=== PATIENT | male | born 1970 | race Hispanic/Latino ===

== ENCOUNTER 2018-10-19 05:44 | Emergency (ER) | payer MEDICAID ==
--- NOTE | 2018-10-19 09:06 | XRay Report ---
PROCEDURE: XR KNEE 3V RT TECHNIQUE: 4 views of the right knee. HISTORY: rt knee pain COMPARISON: None FINDINGS: There is no acute fracture seen. There is no dislocation seen. There is no evidence for joint effusion. There is no focal osseous lesion identified. IMPRESSION: There is no acute abnormality identified. This document is electronically signed by Adelaide Higgins MD., October 19 2018 09:04:09 AM ET
--- NOTE | 2018-10-19 09:08 | XRay Report ---
PROCEDURE: XR SPINE LUMBOSACRAL 2-3V TECHNIQUE: 3 views of the lumbar spine HISTORY: back pain COMPARISON: None FINDINGS: Vertebral heights and alignment are maintained. There is minimal multilevel vertebral endplate spurring. There is minimal disc space narrowing at L3- 4 and L5-S1. There is no fracture seen. SI joints are unremarkable. IMPRESSION: Minimal degenerative disc disease at L3-4 and L5-S1. This document is electronically signed by Adelaide Higgins MD., October 19 2018 09:06:45 AM ET
[2018-10-19] MEDS ORDERED: DELTASONE PO ONE (09:25)
[2018-10-19] MEDS ORDERED: TORADOL IM ONE (09:25)
--- NOTE | 2018-10-19 09:30 | Emergency Department Report ---
ED Back Pain/Injury HPI - General Chief Complaint: Extremity Injury, Lower Stated Complaint: BACK/RT KNEE PAIN Time Seen by Provider: 10/19/18 08:05 Source: patient, EMS Limitations: No Limitations - History of Present Illness Initial Comments: This is a 47-year-old male nontoxic, well nourished in appearance, no acute signs of distress presents to the ED with c/o of acute on chronic lower back pain and right knee pain. Patient stated that the past 2 days he has been walking a lot. Patient denies any injuries.. Patient denies any radiation of pain. Patient denies any trauma. Denies any bladder or bowel instability. Patient denies any urinary symptoms. Denies any fever, chills, nausea, vomiting, headache, stiff neck, chest pain or shortness of breath. Patient den ies any numbness or tingling. Denies any allergies. Denies significant past medical history. MD Complaint: back pain -: days(s) (2) Similar Symptoms Previously: Yes Place: street Radiation: none Severity: mild Severity scale (0 -10): 8 Quality: aching Consistency: intermittent Improves With: immobilization, sitting upright Worsens With: movement, walking Associated Symptoms: denies other symptoms. denies: confusion, weakness, chest pain, numbness, difficulty walking, cough, difficulty urinating, diaphoresis, incontinence, fever/chills, constipation, headaches, abdominal pain, loss of appetite, malaise, nausea/vomiting, rash, seizure, shortness of breath, syncope - Related Data Previous Rx's Medication Instructions Recorded Last Taken Type Cyclobenzaprine [Flexeril] 10 mg PO QHS PRN #10 tablet 10/19/18 Unknown Rx Ibuprofen [Motrin] 600 mg PO Q8H PRN #20 tablet 10/19/18 Unknown Rx Allergies Allergy/AdvReac Type Severity Reaction Status Date / Time No Known Allergies Allergy Unverified 10/19/18 05:57 ED Review of Systems ROS: Stated complaint: BACK/RT KNEE PAIN Other details as noted in HPI Constitutional: denies: chills, fever Eyes: denies: eye pain, eye discharge, vision change ENT: denies: ear pain, throat pain Respiratory: denies: cough, shortness of breath, wheezing Cardiovascular: denies: chest pain, palpitations Endocrine: no symptoms reported Gastrointestinal: denies: abdominal pain, nausea, diarrhea Genitourinary: denies: urgency, dysuria Musculoskeletal: back pain, arthralgia. denies: joint swelling Skin: denies: rash, lesions Neurological: denies: headache, weakness, paresthesias Psychiatric: denies: anxiety, depression Hematological/Lymphatic: denies: easy bleeding, easy bruising ED Past Medical Hx - Past Medical History Previous Medical History?: Yes Hx Psychiatric Treatment: Yes (Schizoprenia, Paranoia) Additional medical history: Right hip replacement - Surgical History Past Surgical History?: Yes Additional Surgical History: Right Hip Replacement - Social History Smoking Status: Current Some Day Smoker - Medications Home Medications: Home Medications Medication Instructions Recorded Confirmed Last Taken Type Cyclobenzaprine [Flexeril] 10 mg PO QHS PRN #10 tablet 10/19/18 Unknown Rx Ibuprofen [Motrin] 600 mg PO Q8H PRN #20 tablet 10/19/18 Unknown Rx ED Physical Exam - General Limitations: No Limitations General appearance: alert, in no apparent distress - Head Head exam: Present: atraumatic, normocephalic - Eye Eye exam: Present: normal appearance - Extremities Exam Extremities exam: Present: normal inspection, full ROM, normal capillary refill. Absent: tenderness, joint swelling, calf tenderness - Expanded Lower Extremity Exam Right Hip exam: Present: normal inspection, full ROM. Absent: tenderness, swelling Upper Leg exam: Present: normal inspection, full ROM. Absent: tenderness, swelling Knee exam: Present: normal inspection, full ROM, full knee extension. Absent: tenderness, swelling, abrasion, laceration, ecchymosis, deformity, crepidus, dislocation, erythema, effusion, pain w/ pronation/supination, posterior draw sign, pain/laxity with valgus, pain/laxity with varus Lower Leg exam: Present: normal inspection, full ROM. Absent: tenderness, swe lling Ankle exam: Present: normal inspection, full ROM. Absent: tenderness, swelling Foot/Toe exam: Present: normal inspection, full ROM. Absent: tenderness, swelling Neuro vascular tendon exam: Present: no vascular compromise Gait: Positive: observed and normal - Back Exam Back exam: Present: normal inspection, full ROM, paraspinal tenderness (lumbar paraspinal). Absent: tenderness, CVA tenderness (R), CVA tenderness (L), muscle spasm, vertebral tenderness, rash noted - Expanded Back Exam Expanded Back exam: Absent: saddle anesthesia Back exam: Negative Straight Leg Raising: Left, Right - Neurological Exam Neurological exam: Present: alert, oriented X3 - Psychiatric Psychiatric exam: Present: normal affect, normal mood - Skin Skin exam: Present: warm, dry, intact, normal color. Absent: rash ED Course Vital Signs 10/19/18 06:04 Temperature 98.9 F Pulse Rate 80 Respiratory 18 Rate Blood Pressure 128/88 O2 Sat by Pulse 100 Oximetry - Reevaluation(s) Reevaluation #1: 10/19/18 09:30 Patient is speaking in full sentences with no signs of distress noted. ED Medical Decision Making - Medical Decision Making This is a 47-year-old male that presents with low back strain and right knee strain. Patient is stable was examined by me. There is no spinal tenderness. There is no cauda equina syndrome during examination. No bladder or bowel instability. Patient received Toradol 60 mg IM and prednisonme in the ED which preceded his symptoms has resolved and subsided. Patient is discharged with muscle relaxant and Motrin. Patient was instructed not to operate any machinery while taking muscle relaxant as they cause her drowsiness. Patient was referred to Follow-up with a primary care doctor in 3-5 days or if symptoms worsen and continue return to emergency room as soon as possible. At time of discharge, the patient does not seem toxic or ill in appearance. No acute signs of distress noted. Patient agrees to discharge treatment plan of care. No further questions noted by the patient. This chart is dictated with using [employer] Critical care attestation.: If time is entered above; I have spent that time in minutes in the direct care of this critically ill patient, excluding procedure time. ED Disposition Clinical Impression: Low back strain Qualifiers: Encounter type: initial encounter Qualified Code(s): S39.012A - Strain of muscle, fascia and tendon of lower back, initial encounter Strain of right knee Qualifiers: Encounter type: initial encounter Qualified Code(s): S86.911A - Strain of unspecified muscle(s) and tendon(s) at lower leg level, right leg, initial encounter Disposition: TO HOME OR SELFCARE Is pt being admited?: No Does the pt Need Aspirin: No Condition: Stable Instructions: Low Back Strain (ED), Knee Pain (ED), RICE Therapy (ED) Additional Instructions: Follow-up with your primary care doctor in 3-5 days or if symptoms worsen such as bladder or bowel stability, chest pain, short of breath, numbness or tingling sensation in extremities, headache, dizziness, visual changes, nausea vomiting, or abdominal pain, return back to emergency room as was possible. Take ibuprofen and Flexeril as prescribed. Do not operate heavy machinery while taking Flexeril due to sedation Prescriptions: Cyclobenzaprine [Flexeril] 10 mg PO QHS PRN #10 tablet PRN Reason: Muscle Spasm Ibuprofen [Motrin] 600 mg PO Q8H PRN #20 tablet PRN Reason: Pain Referrals: [facility] MD ANNE [Primary Care Provider] - 3-5 Days PRIMARY MD MAKSIM [Referring] - 3-5 Days YOUNG BEASLEY MD [Staff Physician] - 3-5 Days [facility] [Outside] - 3-5 Days [facility] [Outside] - 3-5 Days
[2018-10-19 10:10] VITALS: BP 134/80
== END 2018-10-19 10:10 | disposition home or self-care (01) ==
LOC: ED 05:44
DX: S39.012A Strain of muscle, fascia and tendon of lower back, initial encounter (principal); S86.911A Strain of unspecified muscle(s) and tendon(s) at lower leg level, right leg, initial encounter; F20.9 Schizophrenia, unspecified; F17.200 Nicotine dependence, unspecified, uncomplicated; Z96.641 Presence of right artificial hip joint; Z79.899 Other long term (current) drug therapy; X58.XXXA Exposure to other specified factors, initial encounter; Y93.01 Activity, walking, marching and hiking; Y92.488 Other paved roadways as the place of occurrence of the external cause; Y99.8 Other external cause status
CPT/HCPCS: 72100; 73562; 96372; 99284; J1885; J7512

== ENCOUNTER 2018-12-23 16:01 | Emergency (ER) | payer MEDICAID ==
[2018-12-23 17:26] LABS: Hematocrit 46.3 % (35.5-45.6); Hemoglobin 15.6 gm/dl (11.8-15.2); Mean Corpuscular HGB Conc 34 % (32-34); Mean Corpuscular Volume 98 fl (84-94); Platelet Count 342 K/mm3 (140-440); Red Blood Count 4.74 M/mm3 (3.65-5.03); Red Cell Distribution Width 14.2 % (13.2-15.2)
[2018-12-23 17:44] LABS: BUN/Creatinine Ratio 27; Blood Urea Nitrogen 27 mg/dL (9-20); Calcium 10.1 mg/dL (8.4-10.2); Hemolysis Index 21
[2018-12-23 18:02] LABS: Total Cells Counted 100
[2018-12-23 18:03] LABS: RBC Morphology Normal
--- NOTE | 2018-12-23 19:43 | Cat Scan Report ---
CT head/brain wo con INDICATION: confusion. TECHNIQUE: Routine CT head without contrast. Sagittal and coronal reformatted images were obtained. A ll CT scans at this location are performed using CT dose reduction for ALARA by means of automated ex posure control. COMPARISON: None. FINDINGS: BRAIN / INTRACRANIAL CONTENTS: No acute hemorrhage, mass effect, midline shift, hydrocephalus, or acu te, large territorial infarct. Considering the age, generalized cortical involution is seen. Normal t emporal horn tips suggest well preserved medial temporal lobes. Periventricular and deep hemispheric white matter are normal. No significant white matter abnormality. CRANIOCERVICAL JUNCTION: No significant abnormality. ORBITS: No significant abnormality of visualized orbits. SINUSES / MASTOIDS: No significant abnormality of the visualized paranasal sinuses or mastoid air thao ls. ADDITIONAL FINDINGS: None. IMPRESSION: I do not see an acute parenchymal lesion in the brain Cortical involution Signer Name: Chucky Yadav MD Signed: 12/23/2018 7:39 PM Workstation Name: [id number]
[2018-12-23] MEDS ORDERED: ATIVAN IM PRN (20:54)
[2018-12-23] MEDS ORDERED: HALDOL IM PRN (20:54)
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
[2018-12-23 21:29] LABS: Bilirubin,Urine NEG (Negative); Blood,Urine NEG (Negative); Color,Urine Amber (Yellow); Hyaline Casts,Urine 3 /LPF; Mucus,Urine 2+ /HPF
[2018-12-23 21:35] LABS: Amphetamine Screen,Urine PRESUMPTIVE NEGATIVE; Benzodiazepines Screen,Urine PRESUMPTIVE NEGATIVE; Cannabinoid Screen,Urine PRESUMPTIVE NEGATIVE; Cocaine Screen,Urine PRESUMPTIVE NEGATIVE; Methadone Screen,Urine PRESUMPTIVE NEGATIVE; Opiate Screen,Urine PRESUMPTIVE NEGATIVE
[2018-12-23 22:44] VITALS: BP 109/59
== END 2018-12-23 22:44 | disposition short-term general hospital (02) ==
LOC: ED 16:01
DX: S70.12XA Contusion of left thigh, initial encounter (principal); S40.021A Contusion of right upper arm, initial encounter; S09.90XA Unspecified injury of head, initial encounter; H50.89 Other specified strabismus; F17.200 Nicotine dependence, unspecified, uncomplicated; F20.9 Schizophrenia, unspecified; Z98.890 Other specified postprocedural states; Z96.641 Presence of right artificial hip joint; Z79.899 Other long term (current) drug therapy; V09.9XXA Pedestrian injured in unspecified transport accident, initial encounter; Y93.89 Activity, other specified; Y92.488 Other paved roadways as the place of occurrence of the external cause; Y99.8 Other external cause status
CPT/HCPCS: 36415; 70450; 80048; 80307; 81001; 82550; 83735; 85007; 85025; 87086; 93005; 93010; 96372; 99285; J1630; J2060; 80320; G0480

== ENCOUNTER 2019-01-17 17:31 | Emergency (ER) | payer MEDICAID ==
[2019-01-17] MEDS ORDERED: LORazepam 2 MG/ML VIAL IM ONE (17:43)
[2019-01-17] MEDS ORDERED: ZIPRASIDONE MESYLATE 20 MG VIAL IM ONE (17:44)
[2019-01-17] MEDS ORDERED: LORazepam 2 MG/ML VIAL IM PRN (18:08)
[2019-01-17] MEDS ORDERED: HALOPERIDOL LACTATE 5 MG/1 ML INJ IM PRN (18:08)
--- NOTE | 2019-01-17 18:09 | Emergency Department Report ---
ED General Adult HPI - General Chief complaint: Psych Stated complaint: MH EVAL Source: patient, RN notes reviewed, old records reviewed Mode of arrival: Ambulatory Limitations: No Limitations, Other (patient is disorganized, has pressured speech, and is psychiatrically disorganized.) - History of Present Illness Initial comments: This is a 48-year-old gentleman. I am familiar with this patient. In short, has a history of aggressive violent behavior, psychiatric disease, psychosis, schizophrenia The patient was sent to the emergency room for evaluation of aggressive beha vior. Apparently, the patient was seen in this department yesterday, and eloped. As per triage documentation "violent acting very off balance [facility] referral please!!" Patient denies physical pain to this provider. He will not comment on desire to overdose or harm other people. He is preoccupied with his family, who live in another city. On a prior evaluation when I took care of this patient, his family endorse to me that the patient is quite violent, and they're reluctant to take him home. The patient's as per documentation appears reside in a personal nursing home. Patient psychiatrically disorganized, not able to describe qualitative nature of symptoms, aggravating, relieving factors or radiation. - Related Data Home Medications Medication Instructions Recorded Confirmed Last Taken Gabapentin [Neurontin] 300 mg PO DAILY 01/10/19 01/11/19 Unknown Divalproex ER [Depakote ER] 500 mg PO TID 01/11/19 01/11/19 Unknown Previous Rx's Medication Instructions Recorded Last Taken Type Cyclobenzaprine [Flexeril] 10 mg PO QHS PRN #10 tablet 10/19/18 01/07/19 Rx Ibuprofen [Motrin] 600 mg PO Q8H PRN #20 tablet 10/19/18 Unknown Rx Divalproex ER [Depakote ER] 500 mg PO BID #30 tablet 01/12/19 Unknown Rx risperiDONE [RisperDAL] 1 mg PO HS #15 tablet 01/12/19 Unknown Rx Allergies Allergy/AdvReac Type Severity Reaction Status Date / Time No Known Allergies Allergy Verified 01/09/19 10:27 ED Review of Systems ROS: Stated complaint: MH EVAL Other details as noted in HPI Comment: Unobtainable due to pts medical conditions (psychosis) Constitutional: denies: fever Eyes: denies: eye discharge ENT: denies: congestion Respiratory: denies: wheezing Cardiovascular: denies: syncope Gastrointestinal: denies: abdominal pain Musculoskeletal: denies: back pain ED Past Medical Hx - Past Medical History Hx Psychiatric Treatment: Yes (Schizoprenia, Paranoia) Additional medical history: Right hip replacement - Surgical History Additional Surgical History: Right Hip Replacement - Social History Smoking Status: Never Smoker Substance Use Type: None - Medications Home Medications: Home Medications Medication Instructions Recorded Confirmed Last Taken Type Cyclobenzaprine [Flexeril] 10 mg PO QHS PRN #10 tablet 10/19/18 01/11/19 01/07/19 Rx Ibuprofen [Motrin] 600 mg PO Q8H PRN #20 tablet 10/19/18 01/11/19 Unknown Rx Gabapentin [Neurontin] 300 mg PO DAILY 01/10/19 01/11/19 Unknown History Divalproex ER [Depakote ER] 500 mg PO TID 01/11/19 01/11/19 Unknown History Divalproex ER [Depakote ER] 500 mg PO BID #30 tablet 01/12/19 Unknown Rx risperiDONE [RisperDAL] 1 mg PO HS #15 tablet 01/12/19 Unknown Rx ED Physical Exam - General Limitations: No Limitations, Other (psychotic) General appearance: alert, anxious - Head Head exam: Present: atraumatic, normocephalic - Eye Eye exam: Present: normal appearance (right-sided exotropic strabismus), EOMI - ENT ENT exam: Present: normal orophraynx, mucous membranes moist, normal external ear exam - Neck Neck exam: Present: normal inspection, full ROM. Absent: tenderness, meningismus - Respiratory Respiratory exam: Present: normal lung sounds bilaterally. Absent: respiratory distress - Cardiovascular Cardiovascular Exam: Present: regular rate, normal rhythm, normal heart sounds. Absent: bradycardia, tachycardia, irregular rhythm, systolic murmur, diastolic murmur, rubs, gallop - GI/Abdominal GI/Abdominal exam: Present: soft. Absent: distended, tenderness, guarding, rebound, rigid, pulsatile mass - Rectal Rectal exam: Present: deferred - Extremities Exam Extremities exam: Present: normal inspection, full ROM, other (2+ pulses noted in the bilateral upper, lower extremities. There is no long bone tenderness. Musculoskeletal compartments are soft. The pelvis is stable.). Absent: pedal edema, joint swelling, calf tenderness - Back Exam Back exam: Present: normal inspection, full ROM. Absent: tenderness, CVA te nderness (R), CVA tenderness (L), paraspinal tenderness, vertebral tenderness - Neurological Exam Neurological exam: Present: alert, other (there is no facial droop. The tongue is midline. Left-sided extraocular movements are intact. Right-sided exotropic strabismus. Speaking in complete sentences. There is no stridor. Moving 4 extremities spontaneously. 5/5 strength 4 extremities.). Absent: motor sensory deficit - Psychiatric Psychiatric exam: Present: agitated, anxious - Skin Skin exam: Present: warm, dry, intact, normal color. Absent: rash ED Course Vital Signs 01/17/19 19:30 Temperature 98.0 F Pulse Rate 75 Respiratory 16 Rate Blood Pressure 107/68 [Right] O2 Sat by Pulse 98 Oximetry - Reevaluation(s) Reevaluation #1: 01/17/19 19:32 Differential diagnosis, including but not limited to: Aggressive behavior, mood disorder, psychosis, acting out, medical clearance Assessment and plan: 48-year-old gentleman, second visit in 2 days for aggressive violent behavior. Patient pressured, disorganized, eating food without difficulty. His physical exam is unremarkable. He is placed on a 1013 for inability to care for self, and documentation of violent behavior. A psychiatric consultation has been requested. Screening laboratory studies pending. We will discuss with the psychiatric team. Reevaluation #2: 01/17/19 20:38 Laboratory studies, vital signs, physical exam are unremarkable. Patient does not appear to have an emergent medical contraindication at this time to psychiatric evaluation, consultation and placement. ED Medical Decision Making - Lab Data Result diagrams: 01/17/19 18:34 01/17/19 18:34 Vital Signs 01/17/19 19:30 Temperature 98.0 F Pulse Rate 75 Respiratory 16 Rate Blood Pressure 107/68 [Right] O2 Sat by Pulse 98 Oximetry Lab Results 01/17/19 01/17/19 01/17/19 Range/Units 05:47 05:47 05:47 WBC (4.5-11.0) K/mm3 RBC (3.65-5.03) M/mm3 Hgb (11.8-15.2) gm/dl Hct (35.5-45.6) % MCV (84-94) fl MCH (28-32) pg MCHC (32-34) % RDW (13.2-15.2) % Plt Count (140-440) K/mm3 Sodium (137-145) mmol/L Potassium (3.6-5.0) mmol/L Chloride (98-107) mmol/L Carbon Dioxide (22-30) mmol/L Anion Gap mmol/L BUN (9-20) mg/dL Creatinine (0.8-1.5) mg/dL Estimated GFR ml/min BUN/Creatinine Ratio % Glucose (75-100) mg/dL Calcium (8.4-10.2) mg/dL Magnesium 1.90 (1.7-2.3) mg/dL Urine Color (Yellow) Urine Turbidity (Clear) Urine pH (5.0-7.0) Ur Specific [place] (1.003-1.030) Urine Protein (Negative) mg/dL Urine Glucose (UA) (Negative) mg/dL Urine Ketones (Negative) mg/dL Urine Blood (Negative) Urine Nitrite (Negative) Urine Bilirubin (Negative) Urine Urobilinogen (<2.0) mg/dL Ur Leukocyte Esterase (Negative) Urine WBC (Auto) (0.0-6.0) /HPF Urine RBC (Auto) (0.0-6.0) /HPF U Epithel Cells (Auto) (0-13.0) /HPF Hyaline Casts /LPF Urine Mucus /HPF Urine Opiates Screen Urine Methadone Screen Ur Barbiturates Screen Valproic Acid 76.8 (50-100) ug/mL Ur Phencyclidine Scrn Ur Amphetamines Screen U Benzodiazepines Scrn Urine Cocaine Screen U Marijuana (THC) Screen Drugs of Abuse Note Plasma/Serum Alcohol < 0.01 (0-0.07) % 01/17/19 01/17/19 01/17/19 Range/Units 18:34 18:34 Unknown WBC 8.5 (4.5-11.0) K/mm3 RBC 4.76 (3.65-5.03) M/mm3 Hgb 14.8 (11.8-15.2) gm/dl Hct 45.4 (35.5-45.6) % MCV 95 H (84-94) fl MCH 31 (28-32) pg MCHC 33 (32-34) % RDW 14.4 (13.2-15.2) % Plt Count 278 (140-440) K/mm3 Sodium 141 (137-145) mmol/L Potassium 3.8 (3.6-5.0) mmol/L Chloride 101.1 (98-107) mmol/L Carbon Dioxide 20 L (22-30) mmol/L Anion Gap 24 mmol/L BUN 32 H (9-20) mg/dL Creatinine 1.2 D (0.8-1.5) mg/dL Estimated GFR > 60 ml/min BUN/Creatinine Ratio 27 % Glucose 83 (75-100) mg/dL Calcium 9.8 (8.4-10.2) mg/dL Magnesium (1.7-2.3) mg/dL Urine Color [place] (Yellow) Urine Turbidity Slightly-cloudy (Clear) Urine pH 5.0 (5.0-7.0) Ur Specific [place] 1.028 (1.003-1.030) Urine Protein 30 mg/dl (Negative) mg/dL Urine Glucose (UA) Neg (Negative) mg/dL Urine Ketones Tr (Negative) mg/dL Urine Blood Neg (Negative) Urine Nitrite Neg (Negative) Urine Bilirubin Neg (Negative) Urine Urobilinogen 2.0 (<2.0) mg/dL Ur Leukocyte Esterase Neg (Negative) Urine WBC (Auto) 3.0 (0.0-6.0) /HPF Urine RBC (Auto) 1.0 (0.0-6.0) /HPF U Epithel Cells (Auto) < 1.0 (0-13.0) /HPF Hyaline Casts 4 /LPF Urine Mucus 3+ /HPF Urine Opiates Screen Urine Methadone Screen Ur Barbiturates Screen Valproic Acid (50-100) ug/mL Ur Phencyclidine Scrn Ur Amphetamines Screen U Benzodiazepines Scrn Urine Cocaine Screen U Marijuana (THC) Screen Drugs of Abuse Note Plasma/Serum Alcohol (0-0.07) % 01/17/19 Range/Units Unknown WBC (4.5-11.0) K/mm3 RBC (3.65-5.03) M/mm3 Hgb (11.8-15.2) gm/dl Hct (35.5-45.6) % MCV (84-94) fl MCH (28-32) pg MCHC (32-34) % RDW (13.2-15.2) % Plt Count (140-440) K/mm3 Sodium (137-145) mmol/L Potassium (3.6-5.0) mmol/L Chloride (98-107) mmol/L Carbon Dioxide (22-30) mmol/L Anion Gap mmol/L BUN (9-20) mg/dL Creatinine (0.8-1.5) mg/dL Estimated GFR ml/min BUN/Creatinine Ratio % Glucose (75-100) mg/dL Calcium (8.4-10.2) mg/dL Magnesium (1.7-2.3) mg/dL Urine Color (Yellow) Urine Turbidity (Clear) Urine pH (5.0-7.0) Ur Specific [place] (1.003-1.030) Urine Protein (Negative) mg/dL Urine Glucose (UA) (Negative) mg/dL Urine Ketones (Negative) mg/dL Urine Blood (Negative) Urine Nitrite (Negative) Urine Bilirubin (Negative) Urine Urobilinogen (<2.0) mg/dL Ur Leukocyte Esterase (Negative) Urine WBC (Auto) (0.0-6.0) /HPF Urine RBC (Auto) (0.0-6.0) /HPF U Epithel Cells (Auto) (0-13.0) /HPF Hyaline Casts /LPF Urine Mucus /HPF Urine Opiates Screen Presumptive negative Urine Methadone Screen Presumptive negative Ur Barbiturates Screen Presumptive negative Valproic Acid (50-100) ug/mL Ur Phencyclidine Scrn Presumptive negative Ur Amphetamines Screen Presumptive negative U Benzodiazepines Scrn Presumptive negative Urine Cocaine Screen Presumptive negative U Marijuana (THC) Screen Presumptive negative Drugs of Abuse Note Disclamer Plasma/Serum Alcohol (0-0.07) % - EKG Data -: EKG Interpreted by De EKG shows normal: sinus rhythm Rate: normal - EKG Data 01/17/19 19:35 Sinus rhythm, 74 bpm, normal axis, normal intervals, QTC within normal limits, there is poor r wave progression, the EKG is abnormal, the EKG is not consistent with ST elevation myocardial infarction. Critical care attestation.: If time is entered above; I have spent that time in minutes in the direct care of this critically ill patient, excluding procedure time. ED Disposition Clinical Impression: Manic behavior, Medical clearance for psychiatric admission Disposition: DC/TX-65 PSY HOSP/PSY UNIT Is pt being admited?: No Does the pt Need Aspirin: No Condition: Good Referrals: TONIA INTERIANO MD [Primary Care Provider] - 3-5 Days
[2019-01-17 18:48] LABS: Hematocrit 45.4 % (35.5-45.6); Hemoglobin 14.8 gm/dl (11.8-15.2); Mean Corpuscular HGB Conc 33 % (32-34); Mean Corpuscular Volume 95 fl (84-94); Platelet Count 278 K/mm3 (140-440); Red Blood Count 4.76 M/mm3 (3.65-5.03); Red Cell Distribution Width 14.4 % (13.2-15.2)
[2019-01-17 18:49] LABS: Bilirubin,Urine NEG (Negative); Blood,Urine NEG (Negative); Color,Urine Amber (Yellow); Hyaline Casts,Urine 4 /LPF; Mucus,Urine 3+ /HPF
[2019-01-17 19:06] LABS: Amphetamine Screen,Urine PRESUMPTIVE NEGATIVE; Benzodiazepines Screen,Urine PRESUMPTIVE NEGATIVE; Cannabinoid Screen,Urine PRESUMPTIVE NEGATIVE; Cocaine Screen,Urine PRESUMPTIVE NEGATIVE; Methadone Screen,Urine PRESUMPTIVE NEGATIVE; Opiate Screen,Urine PRESUMPTIVE NEGATIVE
[2019-01-17 19:09] LABS: BUN/Creatinine Ratio 27; Blood Urea Nitrogen 32 mg/dL (9-20); Calcium 9.8 mg/dL (8.4-10.2); Hemolysis Index 21
[2019-01-17] MEDS ORDERED: IBUPROFEN 600 MG TAB PO PRN (23:06)
[2019-01-18] MEDS: DIVALPROEX ER 500 MG TAB PO SCH ×2 (11:00→22:16)
[2019-01-18] MEDS: GABAPENTIN 300 MG CAP PO SCH (11:00)
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
[2019-01-18] MEDS ORDERED: risperiDONE 1 MG TAB PO SCH (22:00)
[2019-01-19] MEDS: GABAPENTIN 300 MG CAP PO SCH (11:00)
[2019-01-19] MEDS: DIVALPROEX ER 500 MG TAB PO SCH (11:00)
--- NOTE | 2019-01-19 12:18 | Progress Note ---
Subjective - Reason for Consult Consult date: 01/19/19 Reason for consult: Psychiatry Follow-up - Chief Complaint Chief complaint: 48 y/o white male who presented to the ER for aggressive behavior. This patient is known to me. Today the patient was disorganized during the assessment. He was tangent and his answers to most questions were not logical. He had to be redirected several times to keep him on topic. Per the record, the patient eloped when he first arrived to the ER. No indications of side effects from his medication. Mental Status Exam - Vital signs Last Vital Signs Temp 97.4 F L 01/19/19 01:00 Pulse 71 01/19/19 01:00 Resp 16 01/19/19 01:00 BP 128/65 01/19/19 01:00 Pulse Ox 100 01/19/19 01:00 - Exam Narrative exam: MSE: Appearance: in hospital attire Behavior: regular eye contact Speech: hyper verbal Mood: labile Affect: congruent to mood Thought Process: tangential, disorganized Thought Content: denies SI/HI's and VH's Motor Activity: sitting up in bed Cognition: A/O x3 Insight: poor Judgment: poor Assessment and Plan Impression: Unspecified Psychosis. Today the patient was disorganized during the assessment. UDS was negative DDx: Bipolar DO with psychosis, Schizophrenia Recommendation/Plan: Continue 1013, Risperdal 1 mg PO HS for mood/psychosis, and Depakote 500 mg PO BID for mood. Attempted to discuss possible metabolic side effects of Ripserdal with the patient. Dispo: The patient was referred to inpatient psy services. Staffed with Dr. Christopher Lyle.
[2019-01-19 13:03] VITALS: BP 128/71
== END 2019-01-19 14:22 ==
LOC: EEVIPCON 17:31 → ED 17:31
DX: F20.9 Schizophrenia, unspecified (principal); F30.9 Manic episode, unspecified; F22 Delusional disorders; Z96.641 Presence of right artificial hip joint; Z79.899 Other long term (current) drug therapy
CPT/HCPCS: 36415; 80048; 80164; 80307; 81001; 82550; 83735; 85027; 93005; 93010; 96372; 99285; J2060; J3486; 80320; G0480

== ENCOUNTER 2019-03-24 16:10 | Emergency (ER) | payer MEDICAID ==
[2019-03-24] MEDS ORDERED: ACETAMINOPHEN 500 MG TAB PO ONE (20:16)
[2019-03-24] MEDS ORDERED: IBUPROFEN 600 MG TAB PO ONE (20:16)
--- NOTE | 2019-03-24 21:40 | Cat Scan Report ---
CT head/brain wo con INDICATION / CLINICAL INFORMATION: 48 years Male; headache - spontaneous. TECHNIQUE: Routine CT head without contrast. All CT scans at this location are performed using CT dos e reduction for ALARA by means of automated exposure control. COMPARISON: The study is compared to the previous CT of 12/23/2018. FINDINGS: BRAIN / INTRACRANIAL CONTENTS: The brain appears to demonstrate appropriate attenuation without signi ficant interval change from the previous CT. The ventricular system is unchanged in size and configur ation. There is no clear CT evidence of acute intracranial hemorrhage or significant mass effect. ORBITS: No significant abnormality of visualized orbits. SINUSES / MASTOIDS: No significant abnormality the visualized paranasal sinuses or mastoid air cells. CRANIOCERVICAL JUNCTION: No significant abnormality. ADDITIONAL FINDINGS: None. IMPRESSION: 1. There is no CT evidence of acute intracranial process. Signer Name: Lorenzo Krause MD Signed: 03/24/2019 9:36 PM Workstation Name: [id number]
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
[2019-03-24 23:45] VITALS: BP 112/67
== END 2019-03-25 08:38 | disposition home or self-care (01) ==
LOC: ED 16:10
DX: G44.319 Acute post-traumatic headache, not intractable (principal); F20.9 Schizophrenia, unspecified; F17.200 Nicotine dependence, unspecified, uncomplicated; Z79.899 Other long term (current) drug therapy
CPT/HCPCS: 70450

== ENCOUNTER 2019-03-27 00:18 | Emergency (ER) | payer MEDICAID ==
--- NOTE | 2019-03-27 01:45 | Emergency Department Report ---
ED Eye Problem HPI - General Chief complaint: Eye Problems Stated complaint: EYE PROBLEMS IN EYE, BLURRED VISION, DEPRESSION Time Seen by Provider: 03/27/19 01:39 Source: patient Mode of arrival: Ambulatory Limitations: No Limitations - History of Present Illness Initial comments: She is a 48-year-old male presents emergency room with complaints of redness to his left eye and visual changes. Patient states his symptoms started 2 weeks ago. Patient states he is also feeling depressed for 2 months. Patient states he recently became almost 2 months ago and it causes depression. Patient denies suicidal or homicidal ideation. Patient denies audiovisual hallucinations. Patient states he is able to read and see the TV without difficulties. Patient states his left eye has a small amount of discharge. Patient denies pain. chief complaint: eye redness, vision change -: Gradual, week(s) (2 weeks) Onset Description: gradual Location: left eye Place: home If Injury: none - Related Data Home Medications Medication Instructions Recorded Confirmed Last Taken Gabapentin 300 mg PO DAILY 01/10/19 01/18/19 Unknown Divalproex ER [Depakote ER] 500 mg PO TID 01/11/19 01/18/19 Unknown Previous Rx's Medication Instructions Recorded Last Taken Type Cyclobenzaprine [Flexeril] 10 mg PO QHS PRN #10 tablet 10/19/18 01/07/19 Rx Ibuprofen [Motrin] 600 mg PO Q8H PRN #20 tablet 10/19/18 Unknown Rx Divalproex ER [Depakote ER] 500 mg PO BID #30 tablet 01/12/19 Unknown Rx risperiDONE [RisperDAL] 1 mg PO HS #15 tablet 01/12/19 Unknown Rx Butalb/Acetamin/Caff 50-325-40 1 tab PO Q6HR PRN #12 tab 03/24/19 Unknown Rx [Fioricet 50-325-40] Ibuprofen [Motrin] 600 mg PO Q8H PRN #20 tablet 03/24/19 Unknown Rx Azithromycin(Nf)1% Ophth Soln 1 drops .ROUTE BID 7 Days #1 bottle 03/27/19 Unknown Rx [Azasite (Nf) 1% Ophth Soln] Allergies Allergy/AdvReac Type Severity Reaction Status Date / Time No Known Allergies Allergy Verified 03/24/19 16:14 ED Review of Systems ROS: Stated complaint: EYE PROBLEMS IN RT EYE, BLURRED VISION, DEPRESSION Other details as noted in HPI Constitutional: denies: chills, fever Eyes: eye discharge, vision change. denies: eye pain ENT: denies: ear pain, throat pain Respiratory: denies: cough, shortness of breath, wheezing Cardiovascular: denies: chest pain, palpitations Endocrine: no symptoms reported Gastrointestinal: denies: abdominal pain, nausea, diarrhea Genitourinary: denies: urgency, dysuria Musculoskeletal: denies: back pain, joint swelling, arthralgia Skin: denies: rash, lesions Neurological: denies: headache, weakness, paresthesias Psychiatric: depression. denies: anxiety, auditory hallucinations, visual hallucinations, homicidal thoughts, suicidal thoughts Hematological/Lymphatic: denies: easy bleeding, easy bruising ED Past Medical Hx - Past Medical History Previous Medical History?: Yes Hx Psychiatric Treatment: Yes (Schizoprenia, Paranoia) Hx HIV: No Additional medical history: Right hip replacement - Surgical History Past Surgical History?: Yes Additional Surgical History: Right Hip Replacement - Family History Family history: no significant - Social History Smoking Status: Current Every Day Smoker Substance Use Type: None - Medications Home Medications: Home Medications Medication Instructions Recorded Confirmed Last Taken Type Cyclobenzaprine [Flexeril] 10 mg PO QHS PRN #10 tablet 10/19/18 01/18/19 01/07/19 Rx Ibuprofen [Motrin] 600 mg PO Q8H PRN #20 tablet 10/19/18 01/18/19 Unknown Rx Gabapentin 300 mg PO DAILY 01/10/19 01/18/19 Unknown History Divalproex ER [Depakote ER] 500 mg PO TID 01/11/19 01/18/19 Unknown History Divalproex ER [Depakote ER] 500 mg PO BID #30 tablet 01/12/19 01/18/19 Unknown Rx risperiDONE [RisperDAL] 1 mg PO HS #15 tablet 01/12/19 01/18/19 Unknown Rx Butalb/Acetamin/Caff 50-325-40 1 tab PO Q6HR PRN #12 tab 03/24/19 Unknown Rx [Fioricet 50-325-40] Ibuprofen [Motrin] 600 mg PO Q8H PRN #20 tablet 03/24/19 Unknown Rx Azithromycin(Nf)1% Ophth Soln 1 drops .ROUTE BID 7 Days #1 bottle 03/27/19 Unknown Rx [Azasite (Nf) 1% Ophth Soln] ED Physical Exam - General Limitations: No Limitations General appearance: alert, in no apparent distress - Head Head exam: Present: atraumatic, normocephalic - Eye Eye exam: Present: normal appearance, PERRL, conjunctival injection (left eye conjunctivitis). Absent: scleral icterus, nystagmus, periorbital swelling, periorbital tenderness Pupils: Present: normal accommodation - ENT ENT exam: Present: mucous membranes moist - Neck Neck exam: Present: normal inspection - Respiratory Respiratory exam: Present: normal lung sounds bilaterally. Absent: respiratory distress, wheezes, rales - Cardiovascular Cardiovascular Exam: Present: regular rate, normal rhythm. Absent: systolic murmur, diastolic murmur, rubs, gallop - GI/Abdominal GI/Abdominal exam: Present: soft, normal bowel sounds - Rectal Rectal exam: Present: deferred - Extremities Exam Extremities exam: Present: normal inspection - Back Exam Back exam: Present: normal inspection - Neurological Exam Neurological exam: Present: alert, oriented X3 - Psychiatric Psychiatric exam: Present: depressed. Absent: agitated, anxious, flat affect, manic, homicidal ideation, suicidal ideation - Skin Skin exam: Present: warm, dry, intact, normal color. Absent: rash ED Course Vital Signs 03/27/19 03/27/19 00:25 01:49 Temperature 98.1 F Pulse Rate 71 78 Respiratory 18 17 Rate Blood Pressure 136/83 Blood Pressure 132/84 [Right] O2 Sat by Pulse 98 98 Oximetry - Reevaluation(s) Reevaluation #1: I discussed clinical findings with patient. Patient is stable for discharge. Patient was discharged home. Patient given resources for outpatient follow-up. Patient voiced understanding of discharge instructions. 03/27/19 01:46 ED Medical Decision Making - Medical Decision Making Patient is a 48-year-old male presents emergency room with complaints of left eye redness and visual changes and depression. From a psychiatric standpoint the patient has not had any suicidal or homicidal ideation or a 1013 for further psychiatric evaluation the ER. Patient's left eye clinical findings are consistent with a left conjunctivitis and patient will be given eye drops. Patient not requiring further investigation ER. Patient stable for discharge. Patient given resources to follow up as an outpatient for his depression. - Differential Diagnosis conjunctivitis. Depression. Critical care attestation.: If time is entered above; I have spent that time in minutes in the direct care of this critically ill patient, excluding procedure time. ED Disposition Clinical Impression: Depression Qualifiers: Depression Type: unspecified Qualified Code(s): F32.9 - Major depressive disorder, single episode, unspecified Left conjunctivitis Qualifiers: Conjunctivitis type: acute Acute conjunctivitis type: bacterial Qualified Code(s): H10.32 - Unspecified acute conjunctivitis, left eye Disposition: TO HOME OR SELFCARE Is pt being admited?: No Does the pt Need Aspirin: No Condition: Stable Instructions: Conjunctivitis (ED), Depression (ED) Additional Instructions: Patient to follow up with a primary care in 2-3 days. Patient to follow-up with psychiatry in 2-3 days. Patient to return to ER if condition worsens. Patient to take meds as directed. Patient to use a warm compress to his left eye. Patient to take Tylenol or ibuprofen when necessary for pain. Prescriptions: Azithromycin(Nf)1% Ophth Soln [Azasite (Nf) 1% Ophth Soln] 1 drops .ROUTE BID 7 Days #1 bottle Referrals: [facility] [Outside] - 2-3 Days [facility] [Outside] - 2-3 Days Time of Disposition: 01:45
[2019-03-27 01:50] VITALS: BP 132/84
== END 2019-03-27 02:00 | disposition home or self-care (01) ==
LOC: ED 00:18
DX: H10.32 Unspecified acute conjunctivitis, left eye (principal); F32.9 Major depressive disorder, single episode, unspecified; F20.9 Schizophrenia, unspecified; F17.200 Nicotine dependence, unspecified, uncomplicated
CPT/HCPCS: 99282

== ENCOUNTER 2019-03-27 12:49 | Emergency (ER) | payer MEDICAID ==
[2019-03-27 12:56] VITALS: BP 133/85
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
[2019-03-27 13:39] LABS: Basophils % (Auto) 0.7 % (0.0-1.8); Eosinophils # (Auto) 0.1 K/mm3 (0.0-0.4); Eosinophils % (Auto) 1.8 % (0.0-4.3); Hematocrit 45.7 % (35.5-45.6); Hemoglobin 15.9 gm/dl (11.8-15.2); Lymphocytes # (Auto) 2.2 K/mm3 (1.2-5.4); Lymphocytes % (Auto) 32.4 % (13.4-35.0); Mean Corpuscular HGB Conc 35 % (32-34); Mean Corpuscular Volume 95 fl (84-94); Monocytes # (Auto) 0.8 K/mm3 (0.0-0.8); Monocytes % (Auto) 11.9 % (0.0-7.3); Platelet Count 230 K/mm3 (140-440); Red Blood Count 4.82 M/mm3 (3.65-5.03); Red Cell Distribution Width 15.3 % (13.2-15.2)
[2019-03-27 13:48] LABS: Bilirubin,Urine NEG (Negative); Blood,Urine NEG (Negative); Color,Urine Yellow (Yellow); Hyaline Casts,Urine 1 /LPF; Mucus,Urine 2+ /HPF; Protein,Urine <15 mg/dL mg/dL (Negative)
[2019-03-27 13:55] LABS: Amphetamine Screen,Urine PRESUMPTIVE NEGATIVE; Benzodiazepines Screen,Urine PRESUMPTIVE NEGATIVE; Cannabinoid Screen,Urine PRESUMPTIVE NEGATIVE; Cocaine Screen,Urine PRESUMPTIVE NEGATIVE; Methadone Screen,Urine PRESUMPTIVE NEGATIVE; Opiate Screen,Urine PRESUMPTIVE NEGATIVE
[2019-03-27 14:01] LABS: Alanine Aminotransferase 15 units/L (7-56); Albumin 4.6 g/dL (3.9-5); BUN/Creatinine Ratio 22; Blood Urea Nitrogen 20 mg/dL (9-20); Calcium 9.7 mg/dL (8.4-10.2); Hemolysis Index 9
== END 2019-03-27 17:30 | disposition home or self-care (01) ==
LOC: ED 12:49
DX: F32.9 Major depressive disorder, single episode, unspecified (principal); F20.9 Schizophrenia, unspecified; F17.200 Nicotine dependence, unspecified, uncomplicated
CPT/HCPCS: 36415; 80053; 80307; 80320; 81001; 85025; 99282; G0480

== ENCOUNTER 2019-09-18 10:14 | Emergency (ER) | payer MEDICAID ==
[2019-09-18 10:49] LABS: Basophils % (Auto) 0.5 % (0.0-1.8); Eosinophils # (Auto) 0.1 K/mm3 (0.0-0.4); Eosinophils % (Auto) 1.1 % (0.0-4.3); Hematocrit 51.3 % (35.5-45.6); Hemoglobin 17.7 gm/dl (11.8-15.2); Lymphocytes # (Auto) 1.9 K/mm3 (1.2-5.4); Lymphocytes % (Auto) 30.4 % (13.4-35.0); Mean Corpuscular HGB Conc 35 % (32-34); Mean Corpuscular Volume 97 fl (84-94); Monocytes # (Auto) 0.8 K/mm3 (0.0-0.8); Monocytes % (Auto) 12.5 % (0.0-7.3); Platelet Count 220 K/mm3 (140-440); Red Blood Count 5.29 M/mm3 (3.65-5.03); Red Cell Distribution Width 13.7 % (13.2-15.2)
--- NOTE | 2019-09-18 10:57 | Emergency Department Report ---
HPI - General Chief Complaint: Psych Time Seen by Provider: 09/18/19 10:50 - HPI HPI: 48-year-old male presents to the emergency department for a mental health evaluation and suicidal ideations. The patient says he has been feeling suicidal for about a month. He does not have any particular plan as to how he would harm himself. He says he feels suicidal because he is unhappy with his life and unhappy with his living situation at [place]. He says "I am not on probation and I am tired of living with those kind of people." He also says that he is "tired of being disrespected by those idiots at [facility]." He has a history of schizophrenia and bipolar disorder but denies any hallucinations or any homicidal ideations. He is compliant with his medication including Depakote, trazodone, Latuda. He is a tobacco smoker but denies any illicit drug use. Patient also says that he wants to be tested for Covid 19. He does complain of an occasional cough but it is chronic. He denies any fever, shortness of breath. No recent travel. No known exposure to anyone with Covid 19. ED Past Medical Hx - Past Medical History Previous Medical History?: Yes Hx Psychiatric Treatment: Yes (Schizoprenia, Paranoia) Hx HIV: No Additional medical history: Right hip replacement - Surgical History Past Surgical History?: Yes Additional Surgical History: Right Hip Replacement - Social History Smoking Status: Current Every Day Smoker Substance Use Type: None - Medications Home Medications: Home Medications Medication Instructions Recorded Confirmed Last Taken Type Cyclobenzaprine [Flexeril] 10 mg PO QHS PRN #10 tablet 10/19/18 01/18/19 01/07/19 Rx Ibuprofen [Motrin] 600 mg PO Q8H PRN #20 tablet 10/19/18 01/18/19 Unknown Rx Gabapentin 300 mg PO DAILY 01/10/19 01/18/19 Unknown History Divalproex ER [Depakote ER] 500 mg PO TID 01/11/19 01/18/19 Unknown History Divalproex ER [Depakote ER] 500 mg PO BID #30 tablet 01/12/19 01/18/19 Unknown Rx risperiDONE [RisperDAL] 1 mg PO HS #15 tablet 01/12/19 01/18/19 Unknown Rx Butalb/Acetamin/Caff 50-325-40 1 tab PO Q6HR PRN #12 tab 03/24/19 Unknown Rx [Fioricet 50-325-40] Ibuprofen [Motrin] 600 mg PO Q8H PRN #20 tablet 03/24/19 Unknown Rx Azithromycin(Nf)1% Ophth Soln 1 drops .ROUTE BID 7 Days #1 bottle 03/27/19 Unknown Rx [Azasite (Nf) 1% Ophth Soln] ED Review of Systems ROS: Stated complaint: MH Other details as noted in HPI Comment: All other systems reviewed and negative Constitutional: denies: chills, fever Eyes: denies: eye pain, vision change ENT: denies: ear pain, throat pain Respiratory: cough. denies: shortness of breath Cardiovascular: denies: chest pain, palpitations Gastrointestinal: denies: abdominal pain, vomiting Musculoskeletal: denies: back pain, arthralgia Neurological: denies: headache, weakness Psychiatric: suicidal thoughts. denies: auditory hallucinations, visual hallucinations, homicidal thoughts Physical Exam - Physical Exam Vital Signs: Vital Signs 09/18/19 10:18 Temperature 98.3 F Pulse Rate 82 Respiratory 20 Rate Blood Pressure 137/77 O2 Sat by Pulse 96 Oximetry Physical Exam: GENERAL: The patient is well-developed well-nourished. HENT: Normocephalic. Atraumatic. Patient has moist mucous membranes. EYES: Extraocular motions are intact. NECK: Supple. Trachea is midline. CHEST/LUNGS: Clear to auscultation. No cough heard during examination. No tachypnea or accessory muscle use. There is no respiratory distress noted. HEART/CARDIOVASCULAR: Regular. There is no tachycardia. ABDOMEN: Abdomen is soft, nontender. Patient has normal bowel sounds. SKIN: Skin is warm and dry. NEURO: The patient is awake, alert, and oriented. The patient is cooperative. The patient has no focal neurologic deficits. Normal speech. MUSCULOSKELETAL: There is no tenderness or deformity. There is no evidence of acute injury. ED Course Vital Signs 09/18/19 10:18 Temperature 98.3 F Pulse Rate 82 Respiratory 20 Rate Blood Pressure 137/77 O2 Sat by Pulse 96 Oximetry ED Medical Decision Making - Lab Data Result diagrams: 09/18/19 10:26 09/18/19 10:26 - Radiology Data Radiology results: image reviewed interpreted by me: Chest x-ray does not show any acute process. There are no pleural effusions, obvious pneumonia and there is no pneumothorax. - Medical Decision Making This patient presents to the emergency department with suicidal ideations and for this reason he has been made a 1013. He does have a history of schizophrenia and says he is compliant with his medications. Patient's labs have been unremarkable including CBC, metabolic panel, urinaly sis, urine drug screen and blood alcohol level. The patient was requesting COVID-19 testing mostly because the virus is "out there somewhere" and not because the patient has any significant symptoms. He is a tobacco smoker. A chest x-ray was completed that does not show any pneumonia, pleural effusions, or any other acute process. His vital signs been stable throughout his ED course thus far including being afebrile. The patient does not appear to have any signs of any active COVID-19 or any other infectious process. The patient appears medically cleared for psychiatric placement. Critical Care Time: No Critical care attestation.: If time is entered above; I have spent that time in minutes in the direct care of this critically ill patient, excluding procedure time. ED Disposition Clinical Impression: Suicidal ideations, History of schizophrenia, History of bipolar disorder Disposition: DC-01 TO HOME OR SELFCARE Is pt being admited?: No Condition: Stable Instructions: Depression (ED), Suicide Prevention for Adults (ED) Additional Instructions: Please follow-up with a primary care physician, and any outpatient psychiatric referrals that you are given, once you are done with our [facility] psych unit. Referrals: [facility] [Outside] - 3-5 Days [facility] [Provider Group] - 3-5 Days Time of Disposition: 11:30
[2019-09-18 11:10] LABS: BUN/Creatinine Ratio 18; Blood Urea Nitrogen 20 mg/dL (9-20); Calcium 10.2 mg/dL (8.4-10.2); Hemolysis Index 12
[2019-09-18 11:20] LABS: Amphetamine Screen,Urine PRESUMPTIVE NEGATIVE; Benzodiazepines Screen,Urine PRESUMPTIVE NEGATIVE; Cannabinoid Screen,Urine PRESUMPTIVE NEGATIVE; Cocaine Screen,Urine PRESUMPTIVE NEGATIVE; Methadone Screen,Urine PRESUMPTIVE NEGATIVE; Opiate Screen,Urine PRESUMPTIVE NEGATIVE
--- NOTE | 2019-09-18 11:23 | XRay Report ---
CHEST PA AND LATERAL VIEWS INDICATION: cough. COMPARISON: None FINDINGS: Support devices: None Heart: Normal Lungs/Pleura: No acute pulmonary or pleural findings. IMPRESSION: 1. No significant abnormality. Signer Name: Perez Hauser MD Signed: 09/18/2019 11:19 AM Workstation Name: [id number]
[2019-09-18 11:25] LABS: Bacteria,Urine 1+ /HPF (Negative); Bilirubin,Urine NEG (Negative); Blood,Urine NEG (Negative); Color,Urine Amber (Yellow); Mucus,Urine 3+ /HPF
[2019-09-18 17:28] VITALS: BP 107/84
== END 2019-09-18 16:05 ==
LOC: ED 10:14
DX: R45.851 Suicidal ideations (principal); F31.9 Bipolar disorder, unspecified; F20.9 Schizophrenia, unspecified; R05 Cough; Z96.641 Presence of right artificial hip joint; Z79.1 Long term (current) use of non-steroidal anti-inflammatories (NSAID); Z79.2 Long term (current) use of antibiotics; Z79.899 Other long term (current) drug therapy
CPT/HCPCS: 36415; 71046; 80048; 80164; 80307; 80320; 81001; 85025; G0480

== ENCOUNTER 2019-10-04 21:27 | Emergency (ER) | payer MEDICAID ==
[2019-10-04 22:10] LABS: Basophils % (Auto) 0.5 % (0.0-1.8); Eosinophils # (Auto) 0.1 K/mm3 (0.0-0.4); Eosinophils % (Auto) 1.3 % (0.0-4.3); Mean Corpuscular HGB Conc 36 % (32-34); Mean Corpuscular Volume 97 fl (84-94); Monocytes % (Auto) 12.2 % (0.0-7.3); Platelet Count 212 K/mm3 (140-440); Red Cell Distribution Width 13.9 % (13.2-15.2)
[2019-10-04 22:11] LABS: Hematocrit 44.4 % (35.5-45.6); Hemoglobin 16.1 gm/dl (11.8-15.2)
[2019-10-04 22:30] LABS: BUN/Creatinine Ratio 17; Blood Urea Nitrogen 19 mg/dL (9-20); Calcium 9.2 mg/dL (8.4-10.2); Hemolysis Index 13
[2019-10-04 23:07] LABS: Amphetamine Screen,Urine PRESUMPTIVE NEGATIVE; Benzodiazepines Screen,Urine PRESUMPTIVE NEGATIVE; Cannabinoid Screen,Urine PRESUMPTIVE NEGATIVE; Cocaine Screen,Urine PRESUMPTIVE NEGATIVE; Methadone Screen,Urine PRESUMPTIVE NEGATIVE; Opiate Screen,Urine PRESUMPTIVE NEGATIVE
[2019-10-04 23:12] LABS: Bilirubin,Urine NEG (Negative); Blood,Urine NEG (Negative); Color,Urine Yellow (Yellow); Protein,Urine <15 mg/dL mg/dL (Negative); RBC,Urine < 1.0 /HPF (0.0-6.0); WBC,Urine < 1.0 /HPF (0.0-6.0)
--- NOTE | 2019-10-04 23:32 | Emergency Department Report ---
ED General Adult HPI - General Chief complaint: Psych Stated complaint: MH PUI?: No Time Seen by Provider: 10/04/19 22:36 Source: patient, RN notes reviewed, old records reviewed Mode of arrival: Ambulatory Limitations: Other (Patient is disorganized and somewhat of a poor historian) - History of Present Illness Initial comments: The patient is a 48-year-old gentleman. I have evaluated this gentleman in the past. He has a history of psychiatric disease, psychosis and schizophrenia. He takes valproic acid, and reports taking 1500 mg of valproic acid this evening, at 8:00 PM, as part of his routine medical care. He presents to the ER with a complaint of depression and hopelessness and suicidality. He denies physical pain. He denies fever, cough, and COVID symptomatology. On review of systems, he does endorse that he is concerned about getting exposed to COVID. He denies headache, neck pain, chest pain, abdominal pain, shortness of breath, urinary symptoms and testicular pain. He states that he would like to be psychiatric hospitalized. He states his symptoms are constant, and he does not describe exacerbating or relieving factors that he is aware of. -: Gradual Consistency: constant Improves with: none Worsens with: none - Related Data Home Medications Medication Instructions Recorded Confirmed Last Taken Divalproex ER [Depakote ER] 1,500 mg PO HS 10/04/19 10/04/19 Unknown Lurasidone HCl [Latuda] 80 mg PO DAILY 10/04/19 10/04/19 Unknown traZODone [Desyrel] 100 mg PO QHS 10/04/19 10/04/19 Unknown Allergies Allergy/AdvReac Type Severity Reaction Status Date / Time No Known Allergies Allergy Verified 03/27/19 12:50 ED Review of Systems ROS: Stated complaint: MH Other details as noted in HPI Comment: All other systems reviewed and negative Neurological: weakness Psychiatric: depression, suicidal thoughts. denies: auditory hallucinations, visual hallucinations, homicidal thoughts ED Past Medical Hx - Past Medical History Previous Medical History?: Yes Hx Psychiatric Treatment: Yes (Schizoprenia, Paranoia) Hx HIV: No Additional medical history: Right hip replacement - Surgical History Past Surgical History?: Yes Additional Surgical History: Right Hip Replacement - Social History Smoking Status: Current Every Day Smoker Substance Use Type: None - Medications Home Medications: Home Medications Medication Instructions Recorded Confirmed Last Taken Type Divalproex ER [Depakote ER] 1,500 mg PO HS 10/04/19 10/04/19 Unknown History Lurasidone HCl [Latuda] 80 mg PO DAILY 10/04/19 10/04/19 Unknown History traZODone [Desyrel] 100 mg PO QHS 10/04/19 10/04/19 Unknown History ED Physical Exam - General Limitations: No Limitations General appearance: alert - Head Head exam: Present: atraumatic, normocephalic - Eye Eye exam: Present: PERRL, EOMI, other (There is a left-sided exotropic strabismus). Absent: nystagmus - ENT ENT exam: Present: normal exam, normal orophraynx, mucous membranes moist, normal external ear exam - Neck Neck exam: Present: normal inspection, full ROM. Absent: tenderness, meningismus - Respiratory Respiratory exam: Present: normal lung sounds bilaterally. Absent: respiratory distress - Cardiovascular Cardiovascular Exam: Present: regular rate, normal rhythm, normal heart sounds. Absent: bradycardia, tachycardia, irregular rhythm, systolic murmur, diastolic murmur, rubs, gallop - GI/Abdominal GI/Abdominal exam: Present: soft, normal bowel sounds. Absent: distended, t enderness, guarding, rebound, pulsatile mass - Rectal Rectal exam: Present: deferred - Extremities Exam Extremities exam: Present: normal inspection, full ROM, other (2+ pulses noted in the bilateral upper and lower extremities. There is no palpable cord. negative Homans sign. Muscular compartments are soft. The pelvis is stable.). Absent: pedal edema, calf tenderness - Back Exam Back exam: Present: normal inspection, full ROM. Absent: tenderness, CVA tenderness (R), CVA tenderness (L), paraspinal tenderness, vertebral tenderness - Neurological Exam Neurological exam: Present: alert, other (No facial droop. Tongue midline. Extraocular movements intact bilaterally. Facial sensation intact to light touch in V1, V2, V3 distribution bilaterally. 5 and a 5 strength in 4 extremities. Sensation intact to light touch in 4 extremities.). Absent: motor sensory deficit - Psychiatric Psychiatric exam: Present: anxious, flat affect, suicidal ideation - Skin Skin exam: Present: warm, dry, intact, normal color. Absent: rash ED Course Vital Signs 06/10/05/19 10/05/19 21:45 00:00 01:00 Temperature 98.4 F Pulse Rate 70 56 L 55 L Respiratory 16 13 12 Rate Blood Pressure 124/78 106/61 107/52 Blood Pressure [Left] O2 Sat by Pulse 98 93 93 Oximetry 10/05/19 10/05/19 10/05/19 02:00 03:00 04:00 Temperature Pulse Rate 53 L 51 L 53 L Respiratory 13 12 19 Rate Blood Pressure 99/54 94/58 111/68 Blood Pressure [Left] O2 Sat by Pulse 97 95 97 Oximetry 10/05/19 10/05/19 10/05/19 05:00 06:00 07:00 Temperature Pulse Rate 50 L 47 L 52 L Respiratory 12 11 L 16 Rate Blood Pressure 111/67 98/62 102/51 Blood Pressure [Left] O2 Sat by Pulse 93 99 97 Oximetry 10/05/19 10/05/19 10/05/19 08:00 08:37 09:01 Temperature 98.3 F Pulse Rate 52 L 62 62 Respiratory 14 16 15 Rate Blood Pressure 118/65 134/62 Blood Pressure 118/62 [Left] O2 Sat by Pulse 95 97 94 Oximetry 10/05/19 10/05/19 10/05/19 10:00 11:00 12:35 Temperature Pulse Rate 59 L 57 L 60 Respiratory 15 13 18 Rate Blood Pressure 114/61 114/67 Blood Pressure 106/62 [Left] O2 Sat by Pulse 94 91 99 Oximetry 10/05/19 10/05/19 10/05/19 14:16 15:00 16:00 Temperature Pulse Rate 58 L 58 L Respiratory 14 17 15 Rate Blood Pressure 122/74 124/77 Blood Pressure [Left] O2 Sat by Pulse 97 95 93 Oximetry 10/05/19 10/05/19 10/05/19 16:35 17:00 18:00 Temperature Pulse Rate 62 57 L 54 L Respiratory 18 12 11 L Rate Blood Pressure 131/84 117/54 Blood Pressure 112/66 [Left] O2 Sat by Pulse 92 97 Oximetry 10/05/19 10/05/19 10/05/19 19:00 20:00 20:16 Temperature Pulse Rate 54 L 52 L 53 L Respiratory 12 14 15 Rate Blood Pressure 107/62 116/58 131/84 Blood Pressure [Left] O2 Sat by Pulse 96 93 96 Oximetry 10/05/19 10/05/19 10/05/19 21:00 22:00 23:00 Temperature Pulse Rate 51 L 44 L 50 L Respiratory 16 17 12 Rate Blood Pressure 107/56 106/64 118/76 Blood Pressure [Left] O2 Sat by Pulse 97 98 96 Oximetry 10/06/19 10/06/19 10/06/19 00:00 01:00 02:00 Temperature Pulse Rate 45 L 48 L 55 L Respiratory 14 12 14 Rate Blood Pressure 112/70 112/66 105/72 Blood Pressure [Left] O2 Sat by Pulse 94 96 91 Oximetry 10/06/19 10/06/19 10/06/19 03:00 04:00 05:00 Temperature Pulse Rate 47 L 48 L 68 Respiratory 12 Rate Blood Pressure 124/62 109/62 109/62 Blood Pressure [Left] O2 Sat by Pulse 95 94 92 Oximetry 10/06/19 10/06/19 10/06/19 06:00 07:00 08:00 Temperature Pulse Rate 59 L 46 L 52 L Respiratory Rate Blood Pressure 109/62 121/77 120/73 Blood Pressure [Left] O2 Sat by Pulse 81 L 97 Oximetry - Reevaluation(s) Reevaluation #1: 10/04/19 23:44 Differential diagnosis, including but not limited to: Depression, dysthymia, medical clearance for psychiatric placement, supratherapeutic valproic acid level Assessment and plan: 48-year-old gentleman with depression, with a nonfocal physical examination, not encephalopathic or obtunded, with unremarkable vital signs and an unremarkable physical exam, essentially unchanged prior EKG, laboratory studies reviewed and appreciated, fairly unremarkable, with the exception of elevated valproic acid. Patient will be placed on a patient monitor. Contacted [facility], they recommend venous pH, lactic acid, ammonia liver function tests, and continuous monitoring. They recommend that the patient should have a decreasing valproic acid level, and would not be considered medically cleared un less the aforementioned laboratory studies are unremarkable, and he has 2 successive downtrending valproic acid level less than 100. Additional laboratory studies ordered, we will continue to monitor the patient. A psychiatric consultation is requested, but at the moment, the patient is not cleared for psychiatric placement Reevaluation #2: 10/05/19 03:56 Reassessed. Valproic acid level is downtrending. Elevated lactic acid nonspecific, and not relevant/pertinent at this time as the patient is not obtunded or critically ill. It is most likely secondary to tourniquet time. We do not suspect bacteremic illness at this time. Liver panel within normal limits, ammonia also unimpressive. Contacted [facility]. If repeat level continues to downtrend, we would consider the patient medically suitable for psychiatric placement. Shyam agrees with this plan of care. Reevaluation #3: 10/05/19 05:04 Valproic acid is continued to downtrend. No untoward events noted. Pressure 111/60. Patient medically suitable for psychiatric placement at this time. At the moment, patient does not appear to have an emergent medical contraindication to psychiatric admission, evaluation, consultation and placement. Reevaluation #4: 10/06/19 13:09 Psychiatry recommendations are reviewed and appreciated. Patient resting comfortably in stretcher, and in no acute distress. He will be discharged at this time, psychiatry recommends that he would not benefit from inpatient psychiatric hospitalization. ED Medical Decision Making - Lab Data Result diagrams: 10/04/19 22:01 10/04/19 22:01 Vital Signs 10/04/19 21:45 Temperature 98.4 F Pulse Rate 70 Respiratory 16 Rate Blood Pressure 124/78 O2 Sat by Pulse 98 Oximetry Lab Results 10/04/19 10/04/19 10/04/19 Range/Units 22:01 22:01 22:01 WBC (4.5-11.0) K/mm3 RBC (3.65-5.03) M/mm3 Hgb (11.8-15.2) gm/dl Hct (35.5-45.6) % MCV (84-94) fl MCH (28-32) pg MCHC (32-34) % RDW (13.2-15.2) % Plt Count (140-440) K/mm3 Lymph % (Auto) (13.4-35.0) % [place] % (Auto) (0.0-7.3) % Eos % (Auto) (0.0-4.3) % Baso % (Auto) (0.0-1.8) % Lymph # (1.2-5.4) K/mm3 [place] # (0.0-0.8) K/mm3 Eos # (0.0-0.4) K/mm3 Baso # (0.0-0.1) K/mm3 Seg Neutrophils % (40.0-70.0) % Seg Neutrophils # (1.8-7.7) K/mm3 Sodium 137 (137-145) mmol/L Potassium 3.8 (3.6-5.0) mmol/L Chloride 101.4 (98-107) mmol/L Carbon Dioxide 24 (22-30) mmol/L Anion Gap 15 mmol/L BUN 19 (9-20) mg/dL Creatinine 1.1 (0.8-1.5) mg/dL Estimated GFR > 60 ml/min BUN/Creatinine Ratio 17 % Glucose 88 (75-100) mg/dL Calcium 9.2 (8.4-10.2) mg/dL Magnesium (1.7-2.3) mg/dL Total Creatine Kinase (55-170) units/L Urine Bilirubin (Negative) Urine RBC (Auto) (0.0-6.0) /HPF U Epithel Cells (Auto) (0-13.0) /HPF Salicylates < 0.3 L (2.8-20.0) mg/dL Urine Opiates Screen Urine Methadone Screen Acetaminophen < 5.0 L (10.0-30.0) ug/mL Ur Barbiturates Screen Valproic Acid (50-100) ug/mL Ur Phencyclidine Scrn Ur Amphetamines Screen U Benzodiazepines Scrn Urine Cocaine Screen U Marijuana (THC) Screen Drugs of Abuse Note Plasma/Serum Alcohol (0-0.07) % 10/04/19 10/04/19 10/04/19 Range/Units 22:01 22:01 22:01 WBC 8.6 (4.5-11.0) K/mm3 RBC 4.60 (3.65-5.03) M/mm3 Hgb 16.1 H (11.8-15.2) gm/dl Hct 44.4 (35.5-45.6) % MCV 97 H (84-94) fl MCH 35 H (28-32) pg MCHC 36 H (32-34) % RDW 13.9 (13.2-15.2) % Plt Count 212 (140-440) K/mm3 Lymph % (Auto) 35.0 (13.4-35.0) % [place] % (Auto) 12.2 H (0.0-7.3) % Eos % (Auto) 1.3 (0.0-4.3) % Baso % (Auto) 0.5 (0.0-1.8) % Lymph # 3.0 (1.2-5.4) K/mm3 [place] # 1.0 H (0.0-0.8) K/mm3 Eos # 0.1 (0.0-0.4) K/mm3 Baso # 0.0 (0.0-0.1) K/mm3 Seg Neutrophils % 51.0 (40.0-70.0) % Seg Neutrophils # 4.4 (1.8-7.7) K/mm3 Sodium (137-145) mmol/L Potassium (3.6-5.0) mmol/L Chloride (98-107) mmol/L Carbon Dioxide (22-30) mmol/L Anion Gap mmol/L BUN (9-20) mg/dL Creatinine (0.8-1.5) mg/dL Estimated GFR ml/min BUN/Creatinine Ratio % Glucose (75-100) mg/dL Calcium (8.4-10.2) mg/dL Magnesium 1.70 (1.7-2.3) mg/dL Total Creatine Kinase 189 H (55-170) units/L Urine Bilirubin (Negative) Urine RBC (Auto) (0.0-6.0) /HPF U Epithel Cells (Auto) (0-13.0) /HPF Salicylates (2.8-20.0) mg/dL Urine Opiates Screen Urine Methadone Screen Acetaminophen (10.0-30.0) ug/mL Ur Barbiturates Screen Valproic Acid (50-100) ug/mL Ur Phencyclidine Scrn Ur Amphetamines Screen U Benzodiazepines Scrn Urine Cocaine Screen U Marijuana (THC) Screen Drugs of Abuse Note Plasma/Serum Alcohol < 0.01 (0-0.07) % 10/04/19 10/04/19 10/04/19 Range/Units 22:01 22:45 22:45 WBC (4.5-11.0) K/mm3 RBC (3.65-5.03) M/mm3 Hgb (11.8-15.2) gm/dl Hct (35.5-45.6) % MCV (84-94) fl MCH (28-32) pg MCHC (32-34) % RDW (13.2-15.2) % Plt Count (140-440) K/mm3 Lymph % (Auto) (13.4-35.0) % [place] % (Auto) (0.0-7.3) % Eos % (Auto) (0.0-4.3) % Baso % (Auto) (0.0-1.8) % Lymph # (1.2-5.4) K/mm3 [place] # (0.0-0.8) K/mm3 Eos # (0.0-0.4) K/mm3 Baso # (0.0-0.1) K/mm3 Seg Neutrophils % (40.0-70.0) % Seg Neutrophils # (1.8-7.7) K/mm3 Sodium (137-145) mmol/L Potassium (3.6-5.0) mmol/L Chloride (98-107) mmol/L Carbon Dioxide (22-30) mmol/L Anion Gap mmol/L BUN (9-20) mg/dL Creatinine (0.8-1.5) mg/dL Estimated GFR ml/min BUN/Creatinine Ratio % Glucose (75-100) mg/dL Calcium (8.4-10.2) mg/dL Magnesium (1.7-2.3) mg/dL Total Creatine Kinase (55-170) units/L Urine Bilirubin Neg (Negative) Urine RBC (Auto) < 1.0 (0.0-6.0) /HPF U Epithel Cells (Auto) < 1.0 (0-13.0) /HPF Salicylates (2.8-20.0) mg/dL Urine Opiates Screen Presumptive negative Urine Methadone Screen Presumptive negative Acetaminophen (10.0-30.0) ug/mL Ur Barbiturates Screen Presumptive negative Valproic Acid 133.6 H (50-100) ug/mL Ur Phencyclidine Scrn Presumptive negative Ur Amphetamines Screen Presumptive negative U Benzodiazepines Scrn Presumptive negative Urine Cocaine Screen Presumptive negative U Marijuana (THC) Screen Presumptive negative Drugs of Abuse Note Disclamer Plasma/Serum Alcohol (0-0.07) % Vital Signs 10/04/19 10/05/19 10/05/19 21:45 00:00 01:00 Temperature 98.4 F Pulse Rate 70 56 L 55 L Respiratory 16 13 12 Rate Blood Pressure 124/78 106/61 107/52 O2 Sat by Pulse 98 93 93 Oximetry 10/05/19 10/05/19 02:00 03:00 Temperature Pulse Rate 53 L 51 L Respiratory 13 12 Rate Blood Pressure 99/54 94/58 O2 Sat by Pulse 97 95 Oximetry Lab Results 10/04/19 10/04/19 10/04/19 Range/Units 22:01 22:01 22:01 WBC (4.5-11.0) K/mm3 RBC (3.65-5.03) M/mm3 Hgb (11.8-15.2) gm/dl Hct (35.5-45.6) % MCV (84-94) fl MCH (28-32) pg MCHC (32-34) % RDW (13.2-15.2) % Plt Count (140-440) K/mm3 Lymph % (Auto) (13.4-35.0) % [place] % (Auto) (0.0-7.3) % Eos % (Auto) (0.0-4.3) % Baso % (Auto) (0.0-1.8) % Lymph # (1.2-5.4) K/mm3 [place] # (0.0-0.8) K/mm3 Eos # (0.0-0.4) K/mm3 Baso # (0.0-0.1) K/mm3 Seg Neutrophils % (40.0-70.0) % Seg Neutrophils # (1.8-7.7) K/mm3 VBG pH (7.320-7.420) Sodium 137 (137-145) mmol/L Potassium 3.8 (3.6-5.0) mmol/L Chloride 101.4 (98-107) mmol/L Carbon Dioxide 24 (22-30) mmol/L Anion Gap 15 mmol/L BUN 19 (9-20) mg/dL Creatinine 1.1 (0.8-1.5) mg/dL Estimated GFR > 60 ml/min BUN/Creatinine Ratio 17 % Glucose 88 (75-100) mg/dL Lactic Acid (0.7-2.0) mmol/L Calcium 9.2 (8.4-10.2) mg/dL Magnesium (1.7-2.3) mg/dL Total Bilirubin (0.1-1.2) mg/dL Direct Bilirubin (0-0.2) mg/dL Indirect Bilirubin mg/dL AST (5-40) units/L ALT (7-56) units/L Alkaline Phosphatase (35-129) units/L Ammonia (25-60) umol/L Total Creatine Kinase (55-170) units/L Total Protein (6.3-8.2) g/dL Albumin (3.9-5) g/dL Albumin/Globulin Ratio % Urine Color (Yellow) Urine Turbidity (Clear) Urine pH (5.0-7.0) Ur Specific [place] (1.003-1.030) Urine Protein (Negative) mg/dL Urine Glucose (UA) (Negative) mg/dL Urine Ketones (Negative) mg/dL Urine Blood (Negative) Urine Nitrite (Negative) Urine Bilirubin (Negative) Urine Urobilinogen (<2.0) mg/dL Ur Leukocyte Esterase (Negative) Urine WBC (Auto) (0.0-6.0) /HPF Urine RBC (Auto) (0.0-6.0) /HPF U Epithel Cells (Auto) (0-13.0) /HPF Salicylates < 0.3 L (2.8-20.0) mg/dL Urine Opiates Screen Urine Methadone Screen Acetaminophen < 5.0 L (10.0-30.0) ug/mL Ur Barbiturates Screen Valproic Acid (50-100) ug/mL Ur Phencyclidine Scrn Ur Amphetamines Screen U Benzodiazepines Scrn Urine Cocaine Screen U Marijuana (THC) Screen Drugs of Abuse Note Plasma/Serum Alcohol (0-0.07) % 10/04/19 10/04/19 10/04/19 Range/Units 22:01 22:01 22:01 WBC 8.6 (4.5-11.0) K/mm3 RBC 4.60 (3.65-5.03) M/mm3 Hgb 16.1 H (11.8-15.2) gm/dl Hct 44.4 (35.5-45.6) % MCV 97 H (84-94) fl MCH 35 H (28-32) pg MCHC 36 H (32-34) % RDW 13.9 (13.2-15.2) % Plt Count 212 (140-440) K/mm3 Lymph % (Auto) 35.0 (13.4-35.0) % [place] % (Auto) 12.2 H (0.0-7.3) % Eos % (Auto) 1.3 (0.0-4.3) % Baso % (Auto) 0.5 (0.0-1.8) % Lymph # 3.0 (1.2-5.4) K/mm3 [place] # 1.0 H (0.0-0.8) K/mm3 Eos # 0.1 (0.0-0.4) K/mm3 Baso # 0.0 (0.0-0.1) K/mm3 Seg Neutrophils % 51.0 (40.0-70.0) % Seg Neutrophils # 4.4 (1.8-7.7) K/mm3 VBG pH (7.320-7.420) Sodium (137-145) mmol/L Potassium (3.6-5.0) mmol/L Chloride (98-107) mmol/L Carbon Dioxide (22-30) mmol/L Anion Gap mmol/L BUN (9-20) mg/dL Creatinine (0.8-1.5) mg/dL Estimated GFR ml/min BUN/Creatinine Ratio % Glucose (75-100) mg/dL Lactic Acid (0.7-2.0) mmol/L Calcium (8.4-10.2) mg/dL Magnesium 1.70 (1.7-2.3) mg/dL Total Bilirubin (0.1-1.2) mg/dL Direct Bilirubin (0-0.2) mg/dL Indirect Bilirubin mg/dL AST (5-40) units/L ALT (7-56) units/L Alkaline Phosphatase (35-129) units/L Ammonia (25-60) umol/L Total Creatine Kinase 189 H (55-170) units/L Total Protein (6.3-8.2) g/dL Albumin (3.9-5) g/dL Albumin/Globulin Ratio % Urine Color (Yellow) Urine Turbidity (Clear) Urine pH (5.0-7.0) Ur Specific [place] (1.003-1.030) Urine Protein (Negative) mg/dL Urine Glucose (UA) (Negative) mg/dL Urine Ketones (Negative) mg/dL Urine Blood (Negative) Urine Nitrite (Negative) Urine Bilirubin (Negative) Urine Urobilinogen (<2.0) mg/dL Ur Leukocyte Esterase (Negative) Urine WBC (Auto) (0.0-6.0) /HPF Urine RBC (Auto) (0.0-6.0) /HPF U Epithel Cells (Auto) (0-13.0) /HPF Salicylates (2.8-20.0) mg/dL Urine Opiates Screen Urine Methadone Screen Acetaminophen (10.0-30.0) ug/mL Ur Barbiturates Screen Valproic Acid (50-100) ug/mL Ur Phencyclidine Scrn Ur Amphetamines Screen U Benzodiazepines Scrn Urine Cocaine Screen U Marijuana (THC) Screen Drugs of Abuse Note Plasma/Serum Alcohol < 0.01 (0-0.07) % 10/04/19 10/04/19 10/04/19 Range/Units 22:01 22:45 22:45 WBC (4.5-11.0) K/mm3 RBC (3.65-5.03) M/mm3 Hgb (11.8-15.2) gm/dl Hct (35.5-45.6) % MCV (84-94) fl MCH (28-32) pg MCHC (32-34) % RDW (13.2-15.2) % Plt Count (140-440) K/mm3 Lymph % (Auto) (13.4-35.0) % [place] % (Auto) (0.0-7.3) % Eos % (Auto) (0.0-4.3) % Baso % (Auto) (0.0-1.8) % Lymph # (1.2-5.4) K/mm3 [place] # (0.0-0.8) K/mm3 Eos # (0.0-0.4) K/mm3 Baso # (0.0-0.1) K/mm3 Seg Neutrophils % (40.0-70.0) % Seg Neutrophils # (1.8-7.7) K/mm3 VBG pH (7.320-7.420) Sodium (137-145) mmol/L Potassium (3.6-5.0) mmol/L Chloride (98-107) mmol/L Carbon Dioxide (22-30) mmol/L Anion Gap mmol/L BUN (9-20) mg/dL Creatinine (0.8-1.5) mg/dL Estimated GFR ml/min BUN/Creatinine Ratio % Glucose (75-100) mg/dL Lactic Acid (0.7-2.0) mmol/L Calcium (8.4-10.2) mg/dL Magnesium (1.7-2.3) mg/dL Total Bilirubin (0.1-1.2) mg/dL Direct Bilirubin (0-0.2) mg/dL Indirect Bilirubin mg/dL AST (5-40) units/L ALT (7-56) units/L Alkaline Phosphatase (35-129) units/L Ammonia (25-60) umol/L Total Creatine Kinase (55-170) units/L Total Protein (6.3-8.2) g/dL Albumin (3.9-5) g/dL Albumin/Globulin Ratio % Urine Color Yellow (Yellow) Urine Turbidity Clear (Clear) Urine pH 8.0 H (5.0-7.0) Ur Specific [place] 1.018 (1.003-1.030) Urine Protein <15 mg/dl (Negative) mg/dL Urine Glucose (UA) Neg (Negative) mg/dL Urine Ketones Tr (Negative) mg/dL Urine Blood Neg (Negative) Urine Nitrite Neg (Negative) Urine Bilirubin Neg (Negative) Urine Urobilinogen 4.0 (<2.0) mg/dL Ur Leukocyte Esterase Neg (Negative) Urine WBC (Auto) < 1.0 (0.0-6.0) /HPF Urine RBC (Auto) < 1.0 (0.0-6.0) /HPF U Epithel Cells (Auto) < 1.0 (0-13.0) /HPF Salicylates (2.8-20.0) mg/dL Urine Opiates Screen Presumptive negative Urine Methadone Screen Presumptive negative Acetaminophen (10.0-30.0) ug/mL Ur Barbiturates Screen Presumptive negative Valproic Acid 133.6 H (50-100) ug/mL Ur Phencyclidine Scrn Presumptive negative Ur Amphetamines Screen Presumptive negative U Benzodiazepines Scrn Presumptive negative Urine Cocaine Screen Presumptive negative U Marijuana (THC) Screen Presumptive negative Drugs of Abuse Note Disclamer Plasma/Serum Alcohol (0-0.07) % 10/04/19 10/04/19 10/05/19 Range/Units 23:49 23:49 01:43 WBC (4.5-11.0) K/mm3 RBC (3.65-5.03) M/mm3 Hgb (11.8-15.2) gm/dl Hct (35.5-45.6) % MCV (84-94) fl MCH (28-32) pg MCHC (32-34) % RDW (13.2-15.2) % Plt Count (140-440) K/mm3 Lymph % (Auto) (13.4-35.0) % [place] % (Auto) (0.0-7.3) % Eos % (Auto) (0.0-4.3) % Baso % (Auto) (0.0-1.8) % Lymph # (1.2-5.4) K/mm3 [place] # (0.0-0.8) K/mm3 Eos # (0.0-0.4) K/mm3 Baso # (0.0-0.1) K/mm3 Seg Neutrophils % (40.0-70.0) % Seg Neutrophils # (1.8-7.7) K/mm3 VBG pH (7.320-7.420) Sodium (137-145) mmol/L Potassium (3.6-5.0) mmol/L Chloride (98-107) mmol/L Carbon Dioxide (22-30) mmol/L Anion Gap mmol/L BUN (9-20) mg/dL Creatinine (0.8-1.5) mg/dL Estimated GFR ml/min BUN/Creatinine Ratio % Glucose (75-100) mg/dL Lactic Acid (0.7-2.0) mmol/L Calcium (8.4-10.2) mg/dL Magnesium (1.7-2.3) mg/dL Total Bilirubin 0.30 (0.1-1.2) mg/dL Direct Bilirubin < 0.2 (0-0.2) mg/dL Indirect Bilirubin 0.1 mg/dL AST 13 (5-40) units/L ALT 14 (7-56) units/L Alkaline Phosphatase 71 (35-129) units/L Ammonia (25-60) umol/L Total Creatine Kinase (55-170) units/L Total Protein 6.3 (6.3-8.2) g/dL Albumin 4.1 (3.9-5) g/dL Albumin/Globulin Ratio 1.9 % Urine Color (Yellow) Urine Turbidity (Clear) Urine pH (5.0-7.0) Ur Specific [place] (1.003-1.030) Urine Protein (Negative) mg/dL Urine Glucose (UA) (Negative) mg/dL Urine Ketones (Negative) mg/dL Urine Blood (Negative) Urine Nitrite (Negative) Urine Bilirubin (Negative) Urine Urobilinogen (<2.0) mg/dL Ur Leukocyte Esterase (Negative) Urine WBC (Auto) (0.0-6.0) /HPF Urine RBC (Auto) (0.0-6.0) /HPF U Epithel Cells (Auto) (0-13.0) /HPF Salicylates (2.8-20.0) mg/dL Urine Opiates Screen Urine Methadone Screen Acetaminophen (10.0-30.0) ug/mL Ur Barbiturates Screen Valproic Acid 100.8 H 88.5 (50-100) ug/mL Ur Phencyclidine Scrn Ur Amphetamines Screen U Benzodiazepines Scrn Urine Cocaine Screen U Marijuana (THC) Screen Drugs of Abuse Note Plasma/Serum Alcohol (0-0.07) % 10/05/19 10/05/19 10/05/19 Range/Units 01:43 Unknown Unknown WBC (4.5-11.0) K/mm3 RBC (3.65-5.03) M/mm3 Hgb (11.8-15.2) gm/dl Hct (35.5-45.6) % MCV (84-94) fl MCH (28-32) pg MCHC (32-34) % RDW (13.2-15.2) % Plt Count (140-440) K/mm3 Lymph % (Auto) (13.4-35.0) % [place] % (Auto) (0.0-7.3) % Eos % (Auto) (0.0-4.3) % Baso % (Auto) (0.0-1.8) % Lymph # (1.2-5.4) K/mm3 [place] # (0.0-0.8) K/mm3 Eos # (0.0-0.4) K/mm3 Baso # (0.0-0.1) K/mm3 Seg Neutrophils % (40.0-70.0) % Seg Neutrophils # (1.8-7.7) K/mm3 VBG pH 7.345 (7.320-7.420) Sodium (137-145) mmol/L Potassium (3.6-5.0) mmol/L Chloride (98-107) mmol/L Carbon Dioxide (22-30) mmol/L Anion Gap mmol/L BUN (9-20) mg/dL Creatinine (0.8-1.5) mg/dL Estimated GFR ml/min BUN/Creatinine Ratio % Glucose (75-100) mg/dL Lactic Acid 2.20 H* 2.30 H* (0.7-2.0) mmol/L Calcium (8.4-10.2) mg/dL Magnesium (1.7-2.3) mg/dL Total Bilirubin (0.1-1.2) mg/dL Direct Bilirubin (0-0.2) mg/dL Indirect Bilirubin mg/dL AST (5-40) units/L ALT (7-56) units/L Alkaline Phosphatase (35-129) units/L Ammonia (25-60) umol/L Total Creatine Kinase (55-170) units/L Total Protein (6.3-8.2) g/dL Albumin (3.9-5) g/dL Albumin/Globulin Ratio % Urine Color (Yellow) Urine Turbidity (Clear) Urine pH (5.0-7.0) Ur Specific [place] (1.003-1.030) Urine Protein (Negative) mg/dL Urine Glucose (UA) (Negative) mg/dL Urine Ketones (Negative) mg/dL Urine Blood (Negative) Urine Nitrite (Negative) Urine Bilirubin (Negative) Urine Urobilinogen (<2.0) mg/dL Ur Leukocyte Esterase (Negative) Urine WBC (Auto) (0.0-6.0) /HPF Urine RBC (Auto) (0.0-6.0) /HPF U Epithel Cells (Auto) (0-13.0) /HPF Salicylates (2.8-20.0) mg/dL Urine Opiates Screen Urine Methadone Screen Acetaminophen (10.0-30.0) ug/mL Ur Barbiturates Screen Valproic Acid (50-100) ug/mL Ur Phencyclidine Scrn Ur Amphetamines Screen U Benzodiazepines Scrn Urine Cocaine Screen U Marijuana (THC) Screen Drugs of Abuse Note Plasma/Serum Alcohol (0-0.07) % 10/05/19 Range/Units Unknown WBC (4.5-11.0) K/mm3 RBC (3.65-5.03) M/mm3 Hgb (11.8-15.2) gm/dl Hct (35.5-45.6) % MCV (84-94) fl MCH (28-32) pg MCHC (32-34) % RDW (13.2-15.2) % Plt Count (140-440) K/mm3 Lymph % (Auto) (13.4-35.0) % [place] % (Auto) (0.0-7.3) % Eos % (Auto) (0.0-4.3) % Baso % (Auto) (0.0-1.8) % Lymph # (1.2-5.4) K/mm3 [place] # (0.0-0.8) K/mm3 Eos # (0.0-0.4) K/mm3 Baso # (0.0-0.1) K/mm3 Seg Neutrophils % (40.0-70.0) % Seg Neutrophils # (1.8-7.7) K/mm3 VBG pH (7.320-7.420) Sodium (137-145) mmol/L Potassium (3.6-5.0) mmol/L Chloride (98-107) mmol/L Carbon Dioxide (22-30) mmol/L Anion Gap mmol/L BUN (9-20) mg/dL Creatinine (0.8-1.5) mg/dL Estimated GFR ml/min BUN/Creatinine Ratio % Glucose (75-100) mg/dL Lactic Acid (0.7-2.0) mmol/L Calcium (8.4-10.2) mg/dL Magnesium (1.7-2.3) mg/dL Total Bilirubin (0.1-1.2) mg/dL Direct Bilirubin (0-0.2) mg/dL Indirect Bilirubin mg/dL AST (5-40) units/L ALT (7-56) units/L Alkaline Phosphatase (35-129) units/L Ammonia 24.0 L (25-60) umol/L Total Creatine Kinase (55-170) units/L Total Protein (6.3-8.2) g/dL Albumin (3.9-5) g/dL Albumin/Globulin Ratio % Urine Color (Yellow) Urine Turbidity (Clear) Urine pH (5.0-7.0) Ur Specific [place] (1.003-1.030) Urine Protein (Negative) mg/dL Urine Glucose (UA) (Negative) mg/dL Urine Ketones (Negative) mg/dL Urine Blood (Negative) Urine Nitrite (Negative) Urine Bilirubin (Negative) Urine Urobilinogen (<2.0) mg/dL Ur Leukocyte Esterase (Negative) Urine WBC (Auto) (0.0-6.0) /HPF Urine RBC (Auto) (0.0-6.0) /HPF U Epithel Cells (Auto) (0-13.0) /HPF Salicylates (2.8-20.0) mg/dL Urine Opiates Screen Urine Methadone Screen Acetaminophen (10.0-30.0) ug/mL Ur Barbiturates Screen Valproic Acid (50-100) ug/mL Ur Phencyclidine Scrn Ur Amphetamines Screen U Benzodiazepines Scrn Urine Cocaine Screen U Marijuana (THC) Screen Drugs of Abuse Note Plasma/Serum Alcohol (0-0.07) % - EKG Data -: EKG Interpreted by [place] EKG shows normal: sinus rhythm Rate: normal - EKG Data 10/04/19 23:33 The EKG today shows a sinus rhythm, bradycardia, first-degree AV block, early repolarization, QTC within normal limits, QRS within normal limits, the EKG is abnormal, the EKG is not a STEMI. Fairly unchanged from prior EKG from January 2019 10/04/19 23:43 Critical care attestation.: If time is entered above; I have spent that time in minutes in the direct care of this critically ill patient, excluding procedure time. ED Disposition Clinical Impression: Medical clearance for psychiatric admission, On valproic acid therapy Disposition: DC/TX-70 ANOTHER TYPE HLTHCARE Is pt being admited?: No Does the pt Need Aspirin: No Condition: Stable Additional Instructions: Please continue current outpatient medications. Please follow-up with an outpatient primary care doctor or psychiatrist within the next week. Please return to the emergency room right away with new pain, worsening pain, migration of pain, fevers, chills, lethargy, irritability, projectile vomiting, change in mental status, confusion, inability to tolerate liquid feeds, new, worsened or different symptoms not present on the initial emergency room evaluation Referrals: TONIA INTERIANO MD [Primary Care Provider] - 3-5 Days Time of Disposition: 13:09 (Discharge back to snf)
[2019-10-05 00:41] LABS: Alanine Aminotransferase 14 units/L (7-56); Albumin 4.1 g/dL (3.9-5)
[2019-10-05 00:54] LABS: Bilirubin,Direct < 0.2 mg/dL (0-0.2)
[2019-10-05] MEDS ORDERED: SODIUM CHLORIDE 0.9% 1000 ML 2,000 ML IV ONE (03:53)
[2019-10-05] MEDS ORDERED: DIVALPROEX ER 500 MG TAB PO SCH (22:00)
[2019-10-05] MEDS ORDERED: traZODone 100 MG TAB PO SCH (22:00)
[2019-10-06 10:00] VITALS: BP 120/73
--- NOTE | 2019-10-06 12:32 | Consultation ---
History of Present Illness - Reason for Consult Consult date: 10/06/19 Reason for consult: MHE Requesting physician: YOLANDA CALDWELL - Chief Complaint Chief complaint: SI - History of Present Psychiatric Illness ED Provider: The patient is a 48-year-old gentleman. I have evaluated this gentleman in the past. He has a history of psychiatric disease, psychosis and schizophrenia. He takes valproic acid, and reports taking 1500 mg of valproic acid this evening, at 8:00 PM, as part of his routine medical care. He presents to the ER with a complaint of depression and hopelessness and suicidality. He denies physical pain. He denies fever, cough, and COVID symptomatology. On review of systems, he does endorse that he is concerned about getting exposed to COVID. He denies headache, neck pain, chest pain, abdominal pain, shortness of breath, urinary symptoms and testicular pain. He states that he would like to be psychiatric hospitalized. He states his symptoms are constant, and he does not describe exacerbating or relieving factors that he is aware of. PSYCH HPI Patient is a 48 year old single, unemployed currently on disability male with past psychiatry history of Schizoaffective bipolar who currently resides in a alf presented to ER for SI. Patient states he does not like the current place he stays at says the environment makes him sad, reports being harassed by other peers, and sometimes even confronts him. Patient says his eating well, but sleeping okay sometimes, always angry and sad because fmaily has condemned him due to his behavior and does not have communication with them. He denies hearing voices, or any other type of hallucinations. He endorses SI due to current housing situation and reports being in communication with case management. PAST PSYCHIATRIC HISTORY Diagnoses: Schizoaffective Bipolar Suicide attempts or Self-harm behavior: Yes, in 1992 Prior psychiatric hospitalizations: Yes Substance Abuse history: Alcohol, marijuanna Previous psychiatric medications tried: yes, medication unknown Outpatient treatment: Yes, has an appt tomorrow PAST MEDICAL HISTORY: Chronic pain Family Psychiatric History: None reported or documented SOCIAL HISTORY Marital Status: Single Living Arrangements: long term Employment Status: Disability Access to guns/weapons: None reported Education: High school History of Abuse: None reported Legal History: Yes REVIEW OF SYSTEMS Constitutional: Negative for weight loss ENT: Negative for stridor Respiratory: Negative for cough or hemoptysis All other systems reviewed and are negative MENTAL STATUS EXAMINATION General Appearance and Behavior: Age appropriate, good hygiene, wearing a ppropriate clothes, good eye contact, cooperative but irritable with questioning. Cooperation: Participating/engaged Psychomotor Behavior: unremarkable and within normal limits Mood: Sad, anger Affect and affective range:flat Thought Process: Fluent/Logical Thought Content: Within reality Speech: Normal volume, Regular rate and rhythm Intellectual Functioning: Average Suicidal Ideation: Endorses conditional SI Homicidal Ideation: Denies Impulse Control: Unimpaired Insight and Judgment: Normal insight and judgment Memory: Normal Attention: Normal Orientation: Alert, oriented RECOMMENDATIONS This patient has outpt counselling resources, with apt scheduled tomorow, currently has a place to stay but because he does not like it, he is now SI. Pt was also recently discharged from [facility] on but does not life the facility and back. Patient has resources and access to care, his SI is based on a condition that cannot be managed by inpatient, enco uraging continued hopsitalization would reinforce behavior. Pt also has a child welfare caseworker whom he marybethy F/U with and working on his case. MEDICATIONS: continue home meds Risks, benefits and alternatives of medications discussed with the patient, questions answered and consent obtained from patient. PSYCHOTHERAPY: Supportive psychotherapy provided MEDICAL: Per primary team DELIRIUM PRECAUTIONS: Please re-orient patient frequently, keep lights on during the day, and minimize benzodiazepines and opiates as these medications could worsen patient's confusion. 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 LEGAL STATUS: 1013 rescinded FOLLOW-UP: Will sign off. Thank you for the consult. Please contact with any questions and/or concerns. Medications and Allergies Allergies Allergy/AdvReac Type Severity Reaction Status Date / Time No Known Allergies Allergy Verified 03/27/19 12:50 Home Medications Medication Instructions Recorded Confirmed Last Taken Type Divalproex ER [Depakote ER] 1,500 mg PO HS 10/04/19 10/04/19 Unknown History Lurasidone HCl [Latuda] 80 mg PO DAILY 10/04/19 10/04/19 Unknown History traZODone [Desyrel] 100 mg PO QHS 10/04/19 10/04/19 Unknown History Active Meds: Active Medications Divalproex Sodium (Depakote Er) 1,500 mg PO HS [facility] Last Admin: 10/06/19 00:37 Dose: 1,500 mg Documented by: Trazodone HCl (Desyrel) 100 mg PO QHS [facility] Last Admin: 10/06/19 00:37 Dose: 100 mg Documented by: Mental Status Exam - Vital signs Last Vital Signs Temp 98.3 F 10/05/19 08:37 Pulse 52 L 10/06/19 08:00 Resp 12 10/06/19 03:00 BP 120/73 10/06/19 08:00 Pulse Ox 97 10/06/19 08:00 Results Result Diagrams: 10/04/19 22:01 10/04/19 22:01 All other labs normal.
== END 2019-10-06 13:49 | disposition other institution (70) ==
LOC: ED 21:27 → EEVIPCON 21:27 → ED 10-06 13:49
DX: F32.9 Major depressive disorder, single episode, unspecified (principal); F20.0 Paranoid schizophrenia; Z51.81 Encounter for therapeutic drug level monitoring; Z04.6 Encounter for general psychiatric examination, requested by authority; Z79.899 Other long term (current) drug therapy
CPT/HCPCS: 36415; 80048; 80076; 80164; 80307; 81001; 82140; 82550; 82805; 83735; 85025; 93005; 99285; J7030; 80320; G0480

== ENCOUNTER 2020-06-13 17:46 | Emergency (ER) | payer MEDICAID ==
--- NOTE | 2020-06-13 18:18 | Emergency Department Report ---
Blank Doc - Documentation Documentation: 49-year-old male that presents with suicidal ideation and depression. Patient stated he was kicked out of his home. Patient also states has anxiety. Patient has history of schizophrenia and bipolar and stated is noncompliant with medication. Denies any visual or auditory hallucinations. 1- This initial assessment/diagnostic orders/clinical plan/ treatment(s) is/are subject to change based on pt's health status, clinical progression and re- assessment by fellow clinical providers in the ED. Further treatment and workup at subsequent clinical provers discretion. Patient/guardians urged not to elope from ED as their condition may be serious if not clinically assessed and managed. 2-patient placed on 1013 due to SI 3-psych protocols ordered
[2020-06-13 19:10] LABS: Basophils % (Auto) 0.3 % (0.0-1.8); Eosinophils # (Auto) 0.1 K/mm3 (0.0-0.4); Eosinophils % (Auto) 1.5 % (0.0-4.3); Hematocrit 54.5 % (35.5-45.6); Hemoglobin 18.4 gm/dl (11.8-15.2); Lymphocytes # (Auto) 3.3 K/mm3 (1.2-5.4); Lymphocytes % (Auto) 33.4 % (13.4-35.0); Mean Corpuscular HGB Conc 34 % (32-34); Mean Corpuscular Volume 100 fl (84-94); Monocytes # (Auto) 1.2 K/mm3 (0.0-0.8); Monocytes % (Auto) 11.8 % (0.0-7.3); Platelet Count 246 K/mm3 (140-440); Red Blood Count 5.45 M/mm3 (3.65-5.03); Red Cell Distribution Width 13.5 % (13.2-15.2)
[2020-06-13 19:16] LABS: BUN/Creatinine Ratio 21; Blood Urea Nitrogen 19 mg/dL (9-20); Calcium 9.6 mg/dL (8.4-10.2); Hemolysis Index 26
[2020-06-13 19:50] LABS: Bacteria,Urine 1+ /HPF (Negative); Bilirubin,Urine NEG (Negative); Blood,Urine NEG (Negative); Color,Urine Amber (Yellow); Mucus,Urine 3+ /HPF
[2020-06-13 19:51] LABS: Protein,Urine >500 mg/dL (Negative)
[2020-06-13 19:55] LABS: Amphetamine Screen,Urine Negative; Benzodiazepines Screen,Urine Negative; Cannabinoid Screen,Urine Negative; Cocaine Screen,Urine Negative; Methadone Screen,Urine Negative; Opiate Screen,Urine Negative
[2020-06-13] MEDS ORDERED: ZIPRASIDONE MESYLATE 20 MG VIAL IM ONE (21:48)
[2020-06-13] MEDS ORDERED: diphenhydrAMINE 50 MG/ML VIAL IM ONE (21:49)
--- NOTE | 2020-06-13 21:49 | Emergency Department Report ---
ED Psych HPI - General Chief Complaint: Psych Stated Complaint: MH EVAL Time Seen by Provider: 06/13/20 18:15 Source: patient Mode of arrival: Ambulatory Limitations: No Limitations - History of Present Illness Initial Comments: 49-year-old male with a past medical history of paranoid schizophrenia presents to the hospital complaining of suicidal ideation for a few days. Patient apparently was recently kicked out of [place] apartment today due to conflict with the care process manager. Patient states he is aggravated by other residents there as well. Reports that his mood has been off the last several days. He has not been sleeping well for the last several days. He states he last took his meds yesterday. He is unsure of his current medications but states he is no longer on trazodone but feels he needs it to sleep. He denies auditory visual halluc inations. His plan is to overdose on pills. He has attempted suicide in the past by overdose of pills and cutting his neck with a boxing trainer. Patient denies any physical complaints at this time. - Related Data Home Medications Medication Instructions Recorded Confirmed Last Taken Divalproex ER [Depakote ER] 1,500 mg PO HS 10/04/19 10/04/19 Unknown Lurasidone HCl [Latuda] 80 mg PO DAILY 10/04/19 10/04/19 Unknown traZODone [Desyrel] 100 mg PO QHS 10/04/19 10/04/19 Unknown Allergies Allergy/AdvReac Type Severity Reaction Status Date / Time No Known Allergies Allergy Verified 03/27/19 12:50 ED Review of Systems ROS: Stated complaint: EVAL Other details as noted in HPI Comment: All other systems reviewed and negative ED Past Medical Hx - Past Medical History Previous Medical History?: Yes Hx Psychiatric Treatment: Yes (Schizoprenia, Paranoia) Hx HIV: No Additional medical history: Right hip replacement - Surgical History Past Surgical History?: Yes Additional Surgical History: Right Hip Replacement - Social History Smoking Status: Current Every Day Smoker Substance Use Type: None - Medications Home Medications: Home Medications Medication Instructions Recorded Confirmed Last Taken Type Divalproex ER [Depakote ER] 1,500 mg PO HS 10/04/19 10/04/19 Unknown History Lurasidone HCl [Latuda] 80 mg PO DAILY 10/04/19 10/04/19 Unknown History traZODone [Desyrel] 100 mg PO QHS 10/04/19 10/04/19 Unknown History ED Physical Exam - General Limitations: No Limitations - Other Other exam information: General: No acute distress Head: Atraumatic Eyes: normal appearance ENT: Moist mucous membranes Neck: Normal appearance, no midline tenderness Chest: Clear to auscultation bilaterally CV: Regular rate and rhythm Abdomen: Soft, normal bowel sounds, nontender, nondistended, no rebound or guarding Back: Normal inspection Extremity: Normal inspection, full range of motion Neuro: Alert O x 3, no facial asymmetry, speech clear, no gross motor sensory deficit Psych: Appropriate behavior Skin: No rash ED Course Vital Signs 06/13/20 06/13/20 06/13/20 18:06 19:46 19:47 Temperature 97.9 F 98.1 F Pulse Rate 79 69 Respiratory 26 H 16 16 Rate Blood Pressure 134/91 Blood Pressure 140/78 [Left] O2 Sat by Pulse 99 97 97 Oximetry 06/13/20 06/13/20 06/13/20 21:36 22:54 23:30 Temperature 97.6 F Pulse Rate 61 60 57 L Respiratory 16 16 18 Rate Blood Pressure 132/69 Blood Pressure 116/83 116/84 [Left] O2 Sat by Pulse 98 100 95 Oximetry 06/13/20 06/14/20 06/14/20 23:40 16:13 19:56 Temperature 97.6 F 98.6 F 97.9 F Pulse Rate 60 54 L 60 Respiratory 18 16 20 Rate Blood Pressure 117/57 Blood Pressure 132/69 125/79 [Left] O2 Sat by Pulse 95 97 97 Oximetry - Reevaluation(s) Reevaluation #1: 06/13/20 21: 49 Patient became agitated and yelling therefore he states he is ordered Geodon IM and Benadryl ordered. ED Medical Decision Making - Lab Data Result diagrams: 06/13/20 18:30 06/13/20 18:30 Lab Results 06/13/20 06/13/20 06/13/20 Range/Units 18:30 18:30 18:30 WBC 9.9 (4.5-11.0) K/mm3 RBC 5.45 H (3.65-5.03) M/mm3 Hgb 18.4 H (11.8-15.2) gm/dl Hct 54.5 H (35.5-45.6) % MCV 100 H (84-94) fl MCH 34 H (28-32) pg MCHC 34 (32-34) % RDW 13.5 (13.2-15.2) % Plt Count 246 (140-440) K/mm3 Lymph % (Auto) 33.4 (13.4-35.0) % [place] % (Auto) 11.8 H (0.0-7.3) % Eos % (Auto) 1.5 (0.0-4.3) % Baso % (Auto) 0.3 (0.0-1.8) % Lymph # (Auto) 3.3 (1.2-5.4) K/mm3 [place] # (Auto) 1.2 H (0.0-0.8) K/mm3 Eos # (Auto) 0.1 (0.0-0.4) K/mm3 Baso # (Auto) 0.0 (0.0-0.1) K/mm3 Seg Neutrophils % 53.0 (40.0-70.0) % Seg Neutrophils # 5.3 (1.8-7.7) K/mm3 Sodium 137 (137-145) mmol/L Potassium 4.0 (3.6-5.0) mmol/L Chloride 103.6 (98-107) mmol/L Carbon Dioxide 22 (22-30) mmol/L Anion Gap 15 mmol/L BUN 19 (9-20) mg/dL Creatinine 0.9 (0.8-1.3) mg/dL Estimated GFR > 60 ml/min BUN/Creatinine Ratio 21 % Glucose 90 (75-100) mg/dL Calcium 9.6 (8.4-10.2) mg/dL Urine Color (Yellow) Urine Turbidity (Clear) Urine pH (5.0-7.0) Ur Specific [place] (1.003-1.030) Urine Protein (Negative) mg/dL Urine Glucose (UA) (Negative) mg/dL Urine Ketones (Negative) mg/dL Urine Blood (Negative) Urine Nitrite (Negative) Urine Bilirubin (Negative) Urine Urobilinogen (<2.0) mg/dL Ur Leukocyte Esterase (Negative) Urine WBC (Auto) (0.0-6.0) /HPF Urine RBC (Auto) (0.0-6.0) /HPF U Epithel Cells (Auto) (0-13.0) /HPF Urine Bacteria (Auto) (Negative) /HPF Urine Mucus /HPF Salicylates < 0.3 L (2.8-20.0) mg/dL Urine Opiates Screen Urine Methadone Screen Acetaminophen (10.0-30.0) ug/mL Ur Barbiturates Screen Valproic Acid (50-100) ug/mL Ur Phencyclidine Scrn Ur Amphetamines Screen U Benzodiazepines Scrn Urine Cocaine Screen U Marijuana (THC) Screen Drugs of Abuse Note Plasma/Serum Alcohol (0-0.07) % 06/13/20 06/13/20 06/13/20 Range/Units 18:30 18:30 18:30 WBC (4.5-11.0) K/mm3 RBC (3.65-5.03) M/mm3 Hgb (11.8-15.2) gm/dl Hct (35.5-45.6) % MCV (84-94) fl MCH (28-32) pg MCHC (32-34) % RDW (13.2-15.2) % Plt Count (140-440) K/mm3 Lymph % (Auto) (13.4-35.0) % [place] % (Auto) (0.0-7.3) % Eos % (Auto) (0.0-4.3) % Baso % (Auto) (0.0-1.8) % Lymph # (Auto) (1.2-5.4) K/mm3 [place] # (Auto) (0.0-0.8) K/mm3 Eos # (Auto) (0.0-0.4) K/mm3 Baso # (Auto) (0.0-0.1) K/mm3 Seg Neutrophils % (40.0-70.0) % Seg Neutrophils # (1.8-7.7) K/mm3 Sodium (137-145) mmol/L Potassium (3.6-5.0) mmol/L Chloride (98-107) mmol/L Carbon Dioxide (22-30) mmol/L Anion Gap mmol/L BUN (9-20) mg/dL Creatinine (0.8-1.3) mg/dL Estimated GFR ml/min BUN/Creatinine Ratio % Glucose (75-100) mg/dL Calcium (8.4-10.2) mg/dL Urine Color (Yellow) Urine Turbidity (Clear) Urine pH (5.0-7.0) Ur Specific [place] (1.003-1.030) Urine Protein (Negative) mg/dL Urine Glucose (UA) (Negative) mg/dL Urine Ketones (Negative) mg/dL Urine Blood (Negative) Urine Nitrite (Negative) Urine Bilirubin (Negative) Urine Urobilinogen (<2.0) mg/dL Ur Leukocyte Esterase (Negative) Urine WBC (Auto) (0.0-6.0) /HPF Urine RBC (Auto) (0.0-6.0) /HPF U Epithel Cells (Auto) (0-13.0) /HPF Urine Bacteria (Auto) (Negative) /HPF Urine Mucus /HPF Salicylates (2.8-20.0) mg/dL Urine Opiates Screen Urine Methadone Screen Acetaminophen 5.0 L (10.0-30.0) ug/mL Ur Barbiturates Screen Valproic Acid 48.1 L (50-100) ug/mL Ur Phencyclidine Scrn Ur Amphetamines Screen U Benzodiazepines Scrn Urine Cocaine Screen U Marijuana (THC) Screen Drugs of Abuse Note Plasma/Serum Alcohol < 0.01 (0-0.07) % 06/13/20 06/13/20 Range/Units Unknown Unknown WBC (4.5-11.0) K/mm3 RBC (3.65-5.03) M/mm3 Hgb (11.8-15.2) gm/dl Hct (35.5-45.6) % MCV (84-94) fl MCH (28-32) pg MCHC (32-34) % RDW (13.2-15.2) % Plt Count (140-440) K/mm3 Lymph % (Auto) (13.4-35.0) % [place] % (Auto) (0.0-7.3) % Eos % (Auto) (0.0-4.3) % Baso % (Auto) (0.0-1.8) % Lymph # (Auto) (1.2-5.4) K/mm3 [place] # (Auto) (0.0-0.8) K/mm3 Eos # (Auto) (0.0-0.4) K/mm3 Baso # (Auto) (0.0-0.1) K/mm3 Seg Neutrophils % (40.0-70.0) % Seg Neutrophils # (1.8-7.7) K/mm3 Sodium (137-145) mmol/L Potassium (3.6-5.0) mmol/L Chloride (98-107) mmol/L Carbon Dioxide (22-30) mmol/L Anion Gap mmol/L BUN (9-20) mg/dL Creatinine (0.8-1.3) mg/dL Estimated GFR ml/min BUN/Creatinine Ratio % Glucose (75-100) mg/dL Calcium (8.4-10.2) mg/dL Urine Color [place] (Yellow) Urine Turbidity Clear (Clear) Urine pH 8.0 H (5.0-7.0) Ur Specific [place] 1.025 (1.003-1.030) Urine Protein >500 (Negative) mg/dL Urine Glucose (UA) Neg (Negative) mg/dL Urine Ketones Tr (Negative) mg/dL Urine Blood Neg (Negative) Urine Nitrite Neg (Negative) Urine Bilirubin Neg (Negative) Urine Urobilinogen 4.0 (<2.0) mg/dL Ur Leukocyte Esterase Neg (Negative) Urine WBC (Auto) 1.0 (0.0-6.0) /HPF Urine RBC (Auto) 2.0 (0.0-6.0) /HPF U Epithel Cells (Auto) < 1.0 (0-13.0) /HPF Urine Bacteria (Auto) 1+ (Negative) /HPF Urine Mucus 3+ /HPF Salicylates (2.8-20.0) mg/dL Urine Opiates Screen Negative Urine Methadone Screen Negative Acetaminophen (10.0-30.0) ug/mL Ur Barbiturates Screen Negative Valproic Acid (50-100) ug/mL Ur Phencyclidine Scrn Negative Ur Amphetamines Screen Negative U Benzodiazepines Scrn Negative Urine Cocaine Screen Negative U Marijuana (THC) Screen Negative Drugs of Abuse Note Disclamer Plasma/Serum Alcohol (0-0.07) % - Medical Decision Making 49-year-old male with schizophrenia presents to the hospital suicidal ideation with a emotional combative outburst here in the ED requiring sedation. 1013 has been signed for suicidal ideation. Patient's last medications on record from September 2019 have been reordered until meds can be further adjusted by mental health professional. Patient is medically cleared for psychiatric admission. Covid test ordered as per mental health import specialist request Critical Care Time: No Critical care attestation.: If time is entered above; I have spent that time in minutes in the direct care of this critically ill patient, excluding procedure time. ED Disposition Clinical Impression: Schizophrenia, Suicidal ideation, Labile mood, Medical clearance for psychiatric admission Disposition: DC/TX-65 PSY HOSP/PSY UNIT Is pt being admited?: No Condition: Stable Referrals: PRIMARY CARE, [Primary Care Provider] - 3-5 Days
--- NOTE | 2020-06-14 07:46 | Consultation ---
History of Present Illness - Reason for Consult Consult date: 06/14/20 Reason for consult: MHE Requesting physician: ARDEN KONG - History of Present Psychiatric Illness Per ED Provider: 49-year-old male with a past medical history of paranoid schizophrenia presents to the hospital complaining of suicidal ideation for a few days. Patient apparently was recently kicked out of [place] apartment today due to conflict with the cashier manager. Patient states he is aggravated by other residents there as well. Reports that his mood has been off the last several days. He has not been sleeping well for the last several days. He states he last took his meds yesterday. He is unsure of his current medications but states he is no longer on trazodone but feels he needs it to sleep. He denies auditory visual hallucinations. His plan is to overdose on pills. He has attempted suicide in the past by overdose of pills and cutting his neck with a box stamper. Patient denies any physical complaints at this time. PSYCH HPI Patient is a 48 year old single, unemployed currently on disability male with past psychiatry history of Schizoaffective bipolar who currently resides in a retirement presented to ER for SI. Patient reports that was just recently kicked out of all history because he got into an argument with the cardiac care unit nurse overmedication and other things which he does not want to discuss at this moment. Patient also reports taking more medications in an attempt to kill himself by overdose. Patient endorses suicidal ideation denies auditory visual hallucinations. Patient attributes his suicidal ideation mostly due to homelessness and poor treatment at his retirement. He is known to me from prior encounter presented with similar History PAST PSYCHIATRIC HISTORY Diagnoses: Schizoaffective Bipolar Suicide attempts or Self-harm behavior: Yes, in 1992 Prior psychiatric hospitalizations: Yes Substance Abuse history: Alcohol, marijuanna Previous psychiatric medications tried: yes, medication unknown Outpatient treatment: Yes, has an appt tomorrow PAST MEDICAL HISTORY: Chronic pain Family Psychiatric History: None reported or documented SOCIAL HISTORY Marital Status: Single Living Arrangements: skilled nursing Employment Status: Disability Access to guns/weapons: None reported Education: High school History of Abuse: None reported Legal History: Yes REVIEW OF SYSTEMS Constitutional: Negative for weight loss ENT: Negative for stridor Respiratory: Negative for cough or hemoptysis All other systems reviewed and are negative MENTAL STATUS EXAMINATION General Appearance and Behavior: Age appropriate, good hygiene, wearing appropriate clothes, good eye contact, cooperative but irritable with questioning. Cooperation: Participating/engaged Psychomotor Behavior: unremarkable and within normal limits Mood: Sad, anger Affect and affective range:flat Thought Process: Fluent/Logical Thought Content: Within reality Speech: Normal volume, Regular rate and rhythm Intellectual Functioning: Average Suicidal Ideation: Endorses conditional SI Homicidal Ideation: Denies Impulse Control: Unimpaired Insight and Judgment: Normal insight and judgment Memory: Normal Attention: Normal Orientation: Alert, oriented Assessment and Plan - Psychiatric problem (1) Bipolar 1 disorder, depressed Current Visit: Yes Status: Acute F31.9 RECOMMENDATIONS MEDICATIONS: continue home meds Risks, benefits and alternatives of medications discussed with the patient, questions answered and consent obtained from patient. PSYCHOTHERAPY: Supportive psychotherapy provided MEDICAL: Per primary team DELIRIUM PRECAUTIONS: Please re-orient patient frequently, keep lights on during the day, and minimize benzodiazepines and opiates as these medications could worsen patient's confusion. STREETCAR OPERATOR: Per medical team DISPOSITION: Recommends acute inpatient psychiatric hospitalization at this time, will observe for mood stability. LEGAL STATUS: 1013 FOLLOW-UP: Will follow Thank you for the consult. Please contact with any questions and/or concerns. Medications and Allergies Allergies Allergy/AdvReac Type Severity Reaction Status Date / Time No Known Allergies Allergy Verified 03/27/19 12:50 Home Medications Medication Instructions Recorded Confirmed Last Taken Type Divalproex ER [Depakote ER] 1,500 mg PO HS 10/04/19 10/04/19 Unknown History Lurasidone HCl [Latuda] 80 mg PO DAILY 10/04/19 10/04/19 Unknown History traZODone [Desyrel] 100 mg PO QHS 10/04/19 10/04/19 Unknown History Active Meds: Active Medications Divalproex Sodium (Divalproex Er 500 Mg Tab) 1,500 mg PO [facility] Miscellaneous Medication (Lurasidone Hcl [Latuda]) 80 mg PO DAILY [facility] Trazodone HCl (Trazodone 100 Mg Tab) 100 mg PO QHS [facility] Mental Status Exam - Vital signs Last Vital Signs Temp 97.6 F 06/13/20 23:40 Pulse 60 06/13/20 23:40 Resp 18 06/13/20 23:40 BP 132/69 06/13/20 23:40 Pulse Ox 95 06/13/20 23:40 Results Result Diagrams: 06/13/20 18:30 06/13/20 18:30 Abnormal lab results 06/13/20 06/13/20 06/13/20 Range/Units 18:30 18:30 18:30 RBC 5.45 H (3.65-5.03) M/mm3 Hgb 18.4 H (11.8-15.2) gm/dl Hct 54.5 H (35.5-45.6) % MCV 100 H (84-94) fl MCH 34 H (28-32) pg Harnett % (Auto) 11.8 H (0.0-7.3) % Harnett # (Auto) 1.2 H (0.0-0.8) K/mm3 Urine pH (5.0-7.0) Salicylates < 0.3 L (2.8-20.0) mg/dL Acetaminophen 5.0 L (10.0-30.0) ug/mL Valproic Acid (50-100) ug/mL 06/13/20 06/13/20 Range/Units 18:30 Unknown RBC (3.65-5.03) M/mm3 Hgb (11.8-15.2) gm/dl Hct (35.5-45.6) % MCV (84-94) fl MCH (28-32) pg Harnett % (Auto) (0.0-7.3) % Harnett # (Auto) (0.0-0.8) K/mm3 Urine pH 8.0 H (5.0-7.0) Salicylates (2.8-20.0) mg/dL Acetaminophen (10.0-30.0) ug/mL Valproic Acid 48.1 L (50-100) ug/mL All other labs normal. Assessment and Plan - Psychiatric problem (1) Bipolar 1 disorder, depressed Current Visit: Yes Status: Acute
[2020-06-14] MEDS ORDERED: LURASIDONE HCL 80 MG PO SCH (10:00)
[2020-06-14 19:57] VITALS: BP 125/79
[2020-06-14] MEDS ORDERED: DIVALPROEX ER 500 MG TAB PO SCH (22:00)
[2020-06-14] MEDS ORDERED: traZODone 100 MG TAB PO SCH (22:00)
== END 2020-06-15 01:16 ==
LOC: ED 17:46
DX: F20.9 Schizophrenia, unspecified (principal); R45.86 Emotional lability; F17.200 Nicotine dependence, unspecified, uncomplicated; Z98.890 Other specified postprocedural states; Z79.899 Other long term (current) drug therapy; Z20.822 Contact with and (suspected) exposure to COVID-19; Z04.6 Encounter for general psychiatric examination, requested by authority
CPT/HCPCS: 36415; 80048; 80164; 80307; 81001; 85025; 96372; 99285; J1200; J3486; U0003; 80320; G0480

== ENCOUNTER 2021-03-06 16:25 | Inpatient (IN) | payer MEDICAID ==
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
[2021-03-08] MEDS ORDERED: LURASIDONE HCL 80 MG PO SCH (10:00)
[2021-03-08] MEDS ORDERED: LORazepam 0.5 MG TAB PO PRN (10:00)
[2021-03-08] MEDS ORDERED: ZIPRASIDONE MESYLATE 20 MG VIAL IM PRN (10:00)
[2021-03-08] MEDS: DIVALPROEX ER 500 MG TAB PO SCH (21:16)
[2021-03-08] MEDS: traZODone 100 MG TAB PO SCH (21:16)
--- NOTE | 2021-03-09 05:04 | Consultation ---
History of Present Illness - Reason for Consult Consult date: 03/09/21 - History of Present Illness Reason for consultation: Medical assessment at the time of admission to psych unit 50 year old male with history of Schizoaffective, and Bipolar disorder who was admitted from [facility] on 1012 for anxiety, delusions and paranoia. He subsequently transferred to this unit. Reportedly has been changing many group homes as he was not happy with them. He just left one in [place] and does not want to go back there. States that he is currently homeless. He stated that he has bad temper and issues with anger control. Review of systems: Patient denies any significant past medical history including HTN, CAD, DM, chronic lung disease. He does smoke 1 PPD. He did have right hip joint replacement surgery. Patient denies headache, dizziness, significant cough, hemoptysis, chest pains, dyspnea, palpitations, acute GI symptoms like nausea abdominal pain or diarrhea. He denies acute urinary symptoms. He denies weight loss. Chemistry, TSH, hepatitis serology all negative. Vital signs stable. He is ambulatory. PAST MEDICAL HISTORY: Right hip joint surgery SOCIAL HISTORY Marital Status: single Living Arrangements: jail Family history: Unknown Medications and Allergies Allergies Allergy/AdvReac Type Severity Reaction Status Date / Time No Known Allergies Allergy Verified 03/27/19 12:50 Home Medications Medication Instructions Recorded Confirmed Last Taken Type Lurasidone HCl [Latuda] 80 mg PO DAILY 10/04/19 03/08/21 Unknown History Famotidine [Pepcid] 20 mg PO BID 03/09/21 03/09/21 Unknown History Divalproex ER [Depakote ER] 1,500 mg PO HS #60 03/11/21 Unknown Rx OLANzapine [ZyPREXA] 5 mg PO BID #60 tablet 03/11/21 Unknown Rx traZODone [Desyrel] 100 mg PO QHS #30 03/11/21 Unknown Rx Active Meds: Active Medications Divalproex Sodium (Divalproex Er 500 Mg Tab) 1,500 mg PO HS [facility] Last Admin: 03/08/21 21:16 Dose: 1,500 mg Documented by: Lorazepam (Lorazepam 0.5 Mg Tab) 0.5 mg PO Q4H PRN PRN Reason: Agitation Last Admin: 03/08/21 09:56 Dose: 0.5 mg Documented by: Miscellaneous Medication (Lurasidone Hcl [Latuda]) 80 mg PO DAILY [facility] Olanzapine (Olanzapine 5 Mg Tab) 5 mg PO BID [facility] Last Admin: 03/08/21 21:16 Dose: 5 mg Documented by: Trazodone HCl (Trazodone 100 Mg Tab) 100 mg PO QHS [facility] Last Admin: 03/08/21 21:16 Dose: 100 mg Documented by: Ziprasidone (Ziprasidone Mesylate 20 Mg Vial) 20 mg IM Q4H PRN PRN Reason: Agitation Exam - Constitutional Vitals: Temp Pulse Resp BP Pulse Ox 98.9 F 74 18 132/68 96 03/08/21 22:00 03/08/21 22:00 03/08/21 22:00 03/08/21 22:00 03/08/21 22:00 General appearance: Present: no acute distress, well-nourished, other (Anxious. Alert and oriented.) - EENT Eyes: Present: PERRL, EOM intact ENT: hearing intact - Neck Neck: Present: supple - Respiratory Respiratory effort: normal Respiratory: bilateral: CTA - Cardiovascular Rhythm: regular - Extremities Extremities: No edema - Abdominal General gastrointestinal: Present: soft, non-tender, normal bowel sounds Male genitourinary: Present: deferred - Rectal Rectal Exam: deferred - Integumentary Integumentary: Absent: rash - Neurologic Neurologic: no focal deficits, moves all extremities Results - Labs CBC & Chem 7: 03/09/21 08:59 Assessment and Plan Assessment: No significant medical issues currently No history of history and, DM, CAD, CHF, CVA, chronic lung disease However he does smoke 1 PPD, currently having difficulty breathing History of right hip joint replacement, ambulating okay CMP, TSH, hepatitis serology unremarkable Admitted to psych unit for anxiety delusions and paranoia Recommendations: Currently we have not recommendations as he does not have any acute medical issues Please call us back if he develops any new symptoms or issues. Thank you for this consultation
--- NOTE | 2021-03-09 08:55 | Progress Note ---
Subjective Date of service: 03/09/21 Subjective Comment: 03/09/2021: The patient is seen in the activity room, he reports doing well. Patient states medication is working well for him. States sleep and appetite as good. He denies any current suicidal/homicidal ideation and denies hallucination s. No aggressive behaviors reported. REVIEW OF SYSTEMS Constitutional: Negative for weight loss ENT: Negative for stridor Respiratory: Negative for cough or hemoptysis All other systems reviewed and are negative MENTAL STATUS EXAMINATION General Appearance and Behavior: Age appropriate, wearing appropriate clothes, good eye contact, anxious and cooperative Mood: "ok" Affect and affective range: congruent with stated mood Thought Process: Goal directed Thought Content: Not suicidal Speech: Normal volume, Regular rate and rhythm Suicidal Ideation: Denies Homicidal Ideation: Denies Hallucinations: Denies Delusions: None Impulse Control: normal Insight and Judgment: Limited Memory/Cognition: Limited Attention: Normal Orientation: Alert, oriented Assessment (1) Schizoaffective disorder (2) (3) Current Visit: Yes Status: Acute Treatment Plan Patient admitted for inpatient psychiatric evaluation, medication adjustment and close monitoring The patient's behavior, mood, sleep and appetite will be closely monitored. Patient enrolled in individual and group therapeutic sessions and encouraged to attend. Patient provided with a safe and structured environment. Patient's physical health needs will be addressed by the Hospitalist. Hospitalist Consulted Labs including CBC, CMP, Lipid profile and Hemoglobin A1C levels ordered for baseline reference Social Assessment will be completed and the Doughnut Machine Operator will work with patient and family to ensure a suitable and safe disposition Medication adjustment will be made as clinically indicated Continue home meds Usual Wellness Holiness/Preservation: - Start Trazodone 50 mg po QHS & 50 mg po QHS PRN between 10 PM & 2 AM for insomnia - Start Melatonin 5 mg po QHS to promote circadian rhythm The patient agreed on the treatment plan, understood the risk, benefit, alternative treatment, potential consequence of no treatment, and gave informed consent. Estimated days:6 Post hospital care: primary care provider, psychiatric provider Case staffed with Dr. Brooks Legal Status: Voluntary Reaction to Hospitalization: Accepting Medications and Allergies Medications and Allergies Allergies Allergy/AdvReac Type Severity Reaction Status Date / Time No Known Allergies Allergy Verified 03/27/19 12:50 Home Medications Medication Instructions Recorded Confirmed Last Taken Type Divalproex ER [Depakote ER] 1,500 mg PO HS 10/04/19 03/08/21 Unknown History Lurasidone HCl [Latuda] 80 mg PO DAILY 10/04/19 03/08/21 Unknown History traZODone [Desyrel] 100 mg PO QHS 10/04/19 03/08/21 Unknown History Famotidine [Pepcid] 20 mg PO BID 03/09/21 03/09/21 Unknown History Active Meds: Active Medications Divalproex Sodium (Divalproex Er 500 Mg Tab) 1,500 mg PO [facility] Last Admin: 03/08/21 21:16 Dose: 1,500 mg Documented by: Lorazepam (Lorazepam 0.5 Mg Tab) 0.5 mg PO Q4H PRN PRN Reason: Agitation Last Admin: 03/08/21 09:56 Dose: 0.5 mg Documented by: Miscellaneous Medication (Lurasidone Hcl [Latuda]) 80 mg PO DAILY [facility] Olanzapine (Olanzapine 5 Mg Tab) 5 mg PO BID [facility] Last Admin: 03/08/21 21:16 Dose: 5 mg Documented by: Trazodone HCl (Trazodone 100 Mg Tab) 100 mg PO QHS [facility] Last Admin: 03/08/21 21:16 Dose: 100 mg Documented by: Ziprasidone (Ziprasidone Mesylate 20 Mg Vial) 20 mg IM Q4H PRN PRN Reason: Agitation Results - Results Labs/Vitals: Laboratory Last Values POC Glucose 101 mg/dL (70-105) 03/08/21 19:42 Last Vital Signs Temp 98.9 F 03/08/21 22:00 Pulse 74 03/08/21 22:00 Resp 18 03/08/21 22:00 BP 132/68 03/08/21 22:00 Pulse Ox 96 03/08/21 22:00
[2021-03-09 09:43] LABS: Alanine Aminotransferase 39 units/L (7-56); Albumin 4.3 g/dL (3.9-5); BUN/Creatinine Ratio 24; Blood Urea Nitrogen 19 mg/dL (9-20); Calcium 9.3 mg/dL (8.4-10.2); Chol/HDL Ratio 4.51 %; HDL Cholesterol 39 mg/dL (40-59); Hemolysis Index 10; LDL Cholesterol,Direct 106 mg/dL (50-130)
[2021-03-09 14:47] LABS: Hepatitis C Virus Antibody Non-Reactive (NonReactive)
[2021-03-09 14:48] LABS: Hepatitis B Surface Antigen Nonreactive (Negative)
[2021-03-09] MEDS: traZODone 100 MG TAB PO SCH (21:19)
[2021-03-09] MEDS: DIVALPROEX ER 500 MG TAB PO SCH (21:19)
--- NOTE | 2021-03-10 12:26 | Progress Note ---
Subjective Date of service: 03/10/21 Principal diagnosis: Schizoaffective Disorder Subjective Comment: The patient was seen today. He says he is ready to go home. He says he's from [place] and wants to go back. The patient denies SI/HI or hallucinations of any kind. Will monitor overnight and discharge tomorrow if night uneventful. REVIEW OF SYSTEMS Constitutional: Negative for weight loss ENT: Negative for stridor Respiratory: Negative for cough or hemoptysis All other systems reviewed and are negative MENTAL STATUS EXAMINATION General Appearance and Behavior: Age appropriate, wearing appropriate clothes, good eye contact, calm and cooperative Mood: "ok" Affect and affective range: congruent with stated mood Thought Process: Goal directed Thought Content: Not suicidal Speech: Normal volume, Regular rate and rhythm Suicidal Ideation: Denies Homicidal Ideation: Denies Hallucinations: Denies Delusions: None Impulse Control: normal Insight and Judgment: Limited Memory/Cognition: Limited Attention: Normal Orientation: Alert, oriented Assessment (1) Schizoaffective disorder Treatment Plan Patient admitted for inpatient psychiatric evaluation, medication adjustment and close monitoring The patient's behavior, mood, sleep and appetite will be closely monitored. Patient enrolled in individual and group therapeutic sessions and encouraged to attend. Patient provided with a safe and structured environment. Patient's physical health needs will be addressed by the Hospitalist. Hospitalist Consulted Labs including CBC, CMP, Lipid profile and Hemoglobin A1C levels ordered for baseline reference Social Assessment will be completed and the Can Handler will work with patient and family to ensure a suitable and safe disposition Medication adjustment will be made as clinically indicated Continue home meds Usual Wellness Voodoo/Preservation: - Start Trazodone 50 mg po QHS & 50 mg po QHS PRN between 10 PM & 2 AM for insomnia - Start Melatonin 5 mg po QHS to promote circadian rhythm The patient agreed on the treatment plan, understood the risk, benefit, alternative treatment, potential consequence of no treatment, and gave informed consent. Estimated days:6 Post hospital care: primary care provider, psychiatric provider Case staffed with Dr. Brooks Medications and Allergies Allergies Allergy/AdvReac Type Severity Reaction Status Date / Time No Known Allergies Allergy Verified 03/27/19 12:50 Home Medications Medication Instructions Recorded Confirmed Last Taken Type Divalproex ER [Depakote ER] 1,500 mg PO HS 10/04/19 03/08/21 Unknown History Lurasidone HCl [Latuda] 80 mg PO DAILY 10/04/19 03/08/21 Unknown History traZODone [Desyrel] 100 mg PO QHS 10/04/19 03/08/21 Unknown History Famotidine [Pepcid] 20 mg PO BID 03/09/21 03/09/21 Unknown History Active Meds: Active Medications Divalproex Sodium (Divalproex Er 500 Mg Tab) 1,500 mg PO [facility] Last Admin: 03/09/21 21:19 Dose: 1,500 mg Documented by: Lorazepam (Lorazepam 0.5 Mg Tab) 0.5 mg PO Q4H PRN PRN Reason: Agitation Last Admin: 03/08/21 09:56 Dose: 0.5 mg Documented by: Miscellaneous Medication (Lurasidone Hcl [Latuda]) 80 mg PO DAILY [facility] Olanzapine (Olanzapine 5 Mg Tab) 5 mg PO BID [facility] Last Admin: 03/10/21 09:47 Dose: 5 mg Documented by: Trazodone HCl (Trazodone 100 Mg Tab) 100 mg PO QHS [facility] Last Admin: 03/09/21 21:19 Dose: 100 mg Documented by: Ziprasidone (Ziprasidone Mesylate 20 Mg Vial) 20 mg IM Q4H PRN PRN Reason: Agitation Results - Results Labs/Vitals: Laboratory Last Values Sodium 141 mmol/L (137-145) 03/09/21 08:59 Potassium 3.8 mmol/L (3.6-5.0) 03/09/21 08:59 Chloride 102.1 mmol/L (98-107) 03/09/21 08:59 Carbon Dioxide 23 mmol/L (22-30) 03/09/21 08:59 Anion Gap 20 mmol/L 03/09/21 08:59 BUN 19 mg/dL (9-20) 03/09/21 08:59 Creatinine 0.8 mg/dL (0.8-1.3) 03/09/21 08:59 Estimated GFR > 60 ml/min 03/09/21 08:59 BUN/Creatinine Ratio 24 % 03/09/21 08:59 Glucose 120 mg/dL (75-100) H 03/09/21 08:59 POC Glucose 101 mg/dL (70-105) 03/08/21 19:42 Hemoglobin A1c 5.2 % (4-6) 03/09/21 08:59 Calcium 9.3 mg/dL (8.4-10.2) 03/09/21 08:59 Total Bilirubin 0.50 mg/dL (0.1-1.2) 03/09/21 08:59 AST 20 units/L (5-40) 03/09/21 08:59 ALT 39 units/L (7-56) 03/09/21 08:59 Alkaline Phosphatase 75 units/L (35-129) 03/09/21 08:59 Total Protein 7.0 g/dL (6.3-8.2) 03/09/21 08:59 Albumin 4.3 g/dL (3.9-5) 03/09/21 08:59 Albumin/Globulin Ratio 1.6 % 03/09/21 08:59 Triglycerides 192 mg/dL (2-149) H 03/09/21 08:59 Cholesterol 176 mg/dL (50-199) 03/09/21 08:59 LDL Cholesterol Direct 106 mg/dL (50-130) 03/09/21 08:59 HDL Cholesterol 39 mg/dL (40-59) L 03/09/21 08:59 Cholesterol/HDL Ratio 4.51 % 03/09/21 08:59 TSH 1.420 mlU/mL (0.270-4.200) 03/09/21 08:59 Hepatitis A IgM Ab Non-reactive (NonReactive) 03/09/21 08:59 Hep Bs Antigen Nonreactive (Negative) 03/09/21 08:59 Hep B Core IgM Ab Non-reactive (NonReactive) 03/09/21 08:59 Hepatitis C Antibody Non-reactive (NonReactive) 03/09/21 08:59 Last Vital Signs Temp 97.9 F 03/09/21 08:19 Pulse 67 03/09/21 08:19 Resp 20 03/09/21 08:19 BP 111/65 03/09/21 08:19 Pulse Ox 94 03/09/21 08:19
[2021-03-10] MEDS: DIVALPROEX ER 500 MG TAB PO SCH (22:12)
[2021-03-10] MEDS: traZODone 100 MG TAB PO SCH (22:13)
[2021-03-11 08:58] VITALS: BP 120/70
--- NOTE | 2021-03-11 10:00 | Discharge Summary ---
Providers - Providers Date of Admission: 03/07/21 21:54 Date of discharge: 03/11/21 Attending physician: MALICK SHEN MD 03/06/21 17:51 Consult to Physician [CONS] Routine Comment: Consulting Provider: LUANN BURTON Physician Instructions: Reason For Exam: manage existing medical conditions Primary care physician: JOB TRAINER Hospitalization Reason for admission: psychosis Admitting Diagnosis: F20.9 - SCHIZOPHRENIA, UNSPECIFIED Condition: Stable Hospital course: The patient was provided inpatient psychiatric treatment with safe and supportive care, medication adjustment, adverse effect monitoring, medical evaluations, medical treatments, assessment and psycho-education. The patient's mood, cognition, behavior, moral support are improved and stabilized. St the time of discharge, the patient had no endangering behavior and no debilitating adverse effects. The patient agreed on potential consequences of no treatment and gave informed consent. Disposition: 01 HOME / SELF CARE / HOMELESS Time spent for discharge: 35 Allergies/Adverse Reactions: Allergies No Known Allergies Allergy (Verified 03/27/19 12:50) Vital Signs: Last Vital Signs Temp 98.4 F 03/11/21 08:57 Pulse 64 03/11/21 08:57 Resp 18 03/11/21 08:57 BP 120/70 03/11/21 08:57 Pulse Ox 96 03/11/21 08:57 Last Lab: Laboratory Last Values Sodium 141 mmol/L (137-145) 03/09/21 08:59 Potassium 3.8 mmol/L (3.6-5.0) 03/09/21 08:59 Chloride 102.1 mmol/L (98-107) 03/09/21 08:59 Carbon Dioxide 23 mmol/L (22-30) 03/09/21 08:59 Anion Gap 20 mmol/L 03/09/21 08:59 BUN 19 mg/dL (9-20) 03/09/21 08:59 Creatinine 0.8 mg/dL (0.8-1.3) 03/09/21 08:59 Estimated GFR > 60 ml/min 03/09/21 08:59 BUN/Creatinine Ratio 24 % 03/09/21 08:59 Glucose 120 mg/dL (75-100) H 03/09/21 08:59 POC Glucose 101 mg/dL (70-105) 03/08/21 19:42 Hemoglobin A1c 5.2 % (4-6) 03/09/21 08:59 Calcium 9.3 mg/dL (8.4-10.2) 03/09/21 08:59 Total Bilirubin 0.50 mg/dL (0.1-1.2) 03/09/21 08:59 AST 20 units/L (5-40) 03/09/21 08:59 ALT 39 units/L (7-56) 03/09/21 08:59 Alkaline Phosphatase 75 units/L (35-129) 03/09/21 08:59 Total Protein 7.0 g/dL (6.3-8.2) 03/09/21 08:59 Albumin 4.3 g/dL (3.9-5) 03/09/21 08:59 Albumin/Globulin Ratio 1.6 % 03/09/21 08:59 Triglycerides 192 mg/dL (2-149) H 03/09/21 08:59 Cholesterol 176 mg/dL (50-199) 03/09/21 08:59 LDL Cholesterol Direct 106 mg/dL (50-130) 03/09/21 08:59 HDL Cholesterol 39 mg/dL (40-59) L 03/09/21 08:59 Cholesterol/HDL Ratio 4.51 % 03/09/21 08:59 TSH 1.420 mlU/mL (0.270-4.200) 03/09/21 08:59 Hepatitis A IgM Ab Non-reactive (NonReactive) 03/09/21 08:59 Hep Bs Antigen Nonreactive (Negative) 03/09/21 08:59 Hep B Core IgM Ab Non-reactive (NonReactive) 03/09/21 08:59 Hepatitis C Antibody Non-reactive (NonReactive) 03/09/21 08:59 Core Measure Documentation - Palliative Care Palliative Care/ Comfort Measures: Not Applicable - Core Measures Any of the following diagnoses?: none Exam - Constitutional Vitals: Temp Pulse Resp BP Pulse Ox 98.4 F 64 18 120/70 96 03/11/21 08:57 03/11/21 08:57 03/11/21 08:57 03/11/21 08:57 03/11/21 08:57 General appearance: Present: no acute distress - EENT Eyes: Present: PERRL, EOM intact ENT: hearing intact, clear oral mucosa - Neck Neck: Present: supple, normal ROM - Respiratory Respiratory effort: normal Plan Activity: advance as tolerated Weight Bearing Status: Weight Bear as Tolerated Care Plan Goals: Maintain good and stable mental health Plan of Treatment: The patient should be compliant with medications, not to use drugs, and not to drink alcohol. The patient understands that if suicidal ideas, homicidal ideas or any endangering feeling arise, the patient should seek assistance including, but not limited to crisis hotline, and emergency room. Assessment: Bipolar Follow up with: PRIMARY CARE, [Primary Care Provider] - 7 Days Prescriptions: traZODone [Desyrel] 100 mg PO QHS #30 Divalproex ER [Depakote ER] 1,500 mg PO HS #60 OLANzapine [ZyPREXA] 5 mg PO BID #60 tablet
== END 2021-03-11 14:20 | disposition home or self-care (01) | DRG 885 ==
LOC: 3A 16:25 → UNDOADMIN 16:25 → 5A 03-07 21:54
PROVIDERS: ADMIT Psychiatry & Neurology Psychiatry; ATTEND Psychiatry & Neurology Psychiatry
DX: F25.9 Schizoaffective disorder, unspecified (principal); F31.9 Bipolar disorder, unspecified; F17.200 Nicotine dependence, unspecified, uncomplicated
CPT/HCPCS: 36415; 80053; 80061; 80074; 82962; 83036; 84443; G0378